=== PATIENT | male | born 1965 | race Caucasian/White ===

== ENCOUNTER → 2019-11-21 10:07 | Outpatient (BNVA) | payer OTHER, SELFPAY | PROVIDERS: Family Provider Nurse Practitioner Family; PCP Nurse Practitioner Family; Visit Provider Anesthesiology | DX: M47.814 Spondylosis without myelopathy or radiculopathy, thoracic region (principal); M51.16 Intervertebral disc disorders with radiculopathy, lumbar region; G57.93 Unspecified mononeuropathy of bilateral lower limbs; Z79.891 Long term (current) use of opiate analgesic | CPT/HCPCS: 99214 ==

== ENCOUNTER → 2020-01-20 11:28 | Outpatient (BNVA) | payer OTHER, SELFPAY | PROVIDERS: Family Provider Nurse Practitioner Family; PCP Nurse Practitioner Family; Visit Provider Nurse Practitioner Family | DX: R35.0 Frequency of micturition (principal); N39.0 Urinary tract infection, site not specified; N30.00 Acute cystitis without hematuria | CPT/HCPCS: 80053; 81000; 87077; 87086; 87186 ==

== ENCOUNTER → 2020-02-16 17:29 | Outpatient (BNVA) | payer OTHER, SELFPAY | PROVIDERS: Family Provider Nurse Practitioner Family; PCP Nurse Practitioner Family; Visit Provider Nurse Practitioner | DX: N39.0 Urinary tract infection, site not specified (principal); R30.0 Dysuria | CPT/HCPCS: 80053; 81000; 87077; 87086; 87186 ==

== ENCOUNTER → 2020-02-27 15:24 | Outpatient (BNVA) | payer OTHER, SELFPAY | PROVIDERS: Family Provider Nurse Practitioner Family; PCP Nurse Practitioner Family; Visit Provider Nurse Practitioner Family | DX: N39.0 Urinary tract infection, site not specified (principal); R31.9 Hematuria, unspecified; E55.9 Vitamin D deficiency, unspecified; I10 Essential (primary) hypertension; I48.91 Unspecified atrial fibrillation; Z79.899 Other long term (current) drug therapy; E78.2 Mixed hyperlipidemia | CPT/HCPCS: 74018 ==

== ENCOUNTER → 2020-02-29 13:57 | Outpatient (BNVA) | payer OTHER, SELFPAY | PROVIDERS: Family Provider Nurse Practitioner Family; PCP Nurse Practitioner Family; Visit Provider Anesthesiology | DX: M51.16 Intervertebral disc disorders with radiculopathy, lumbar region (principal); M47.814 Spondylosis without myelopathy or radiculopathy, thoracic region; M54.9 Dorsalgia, unspecified; M25.562 Pain in left knee; G57.93 Unspecified mononeuropathy of bilateral lower limbs; F17.220 Nicotine dependence, chewing tobacco, uncomplicated; Z79.891 Long term (current) use of opiate analgesic | CPT/HCPCS: 99214 ==

== ENCOUNTER → 2020-03-28 12:53 | Outpatient (BNVA) | payer OTHER, SELFPAY | PROVIDERS: Family Provider Nurse Practitioner Family; PCP Nurse Practitioner Family; Visit Provider Nurse Practitioner Family | DX: N39.0 Urinary tract infection, site not specified (principal) | CPT/HCPCS: 81001 ==

== ENCOUNTER → 2020-04-29 17:19 | Outpatient (BNVA) | payer OTHER, SELFPAY | PROVIDERS: Family Provider Nurse Practitioner Family; PCP Nurse Practitioner Family; Visit Provider Nurse Practitioner Family | DX: N39.0 Urinary tract infection, site not specified (principal) | CPT/HCPCS: 81001 ==

== ENCOUNTER → 2020-04-30 14:08 | Outpatient (BNVA) | payer OTHER, SELFPAY | PROVIDERS: Family Provider Nurse Practitioner Family; PCP Nurse Practitioner Family; Visit Provider Anesthesiology | DX: M51.16 Intervertebral disc disorders with radiculopathy, lumbar region (principal); M47.814 Spondylosis without myelopathy or radiculopathy, thoracic region; M54.9 Dorsalgia, unspecified; M25.562 Pain in left knee; F17.220 Nicotine dependence, chewing tobacco, uncomplicated; Z79.891 Long term (current) use of opiate analgesic; Z71.6 Tobacco abuse counseling | CPT/HCPCS: 99214 ==

== ENCOUNTER → 2020-06-27 12:53 | Outpatient (BNVA) | payer OTHER, SELFPAY | PROVIDERS: Family Provider Nurse Practitioner Family; PCP Nurse Practitioner Family; Visit Provider Nurse Practitioner | DX: M51.16 Intervertebral disc disorders with radiculopathy, lumbar region (principal); M47.814 Spondylosis without myelopathy or radiculopathy, thoracic region; M54.9 Dorsalgia, unspecified; G57.93 Unspecified mononeuropathy of bilateral lower limbs; F17.220 Nicotine dependence, chewing tobacco, uncomplicated; Z79.891 Long term (current) use of opiate analgesic; Z71.6 Tobacco abuse counseling | CPT/HCPCS: 99214 ==

== ENCOUNTER → 2020-07-16 12:15 | Outpatient (BNVA) | payer OTHER, SELFPAY | PROVIDERS: Family Provider Nurse Practitioner Family; PCP Nurse Practitioner Family; Visit Provider Nurse Practitioner Family | DX: Z11.59 Encounter for screening for other viral diseases (principal); J22 Unspecified acute lower respiratory infection; Z20.828 Contact with and (suspected) exposure to other viral communicable diseases | CPT/HCPCS: 87400; 87635 ==

== ENCOUNTER → 2020-07-25 13:37 | Outpatient (BNVA) | payer OTHER, SELFPAY | PROVIDERS: Family Provider Nurse Practitioner Family; PCP Nurse Practitioner Family; Visit Provider Anesthesiology | DX: M51.16 Intervertebral disc disorders with radiculopathy, lumbar region (principal); M47.814 Spondylosis without myelopathy or radiculopathy, thoracic region; G57.93 Unspecified mononeuropathy of bilateral lower limbs; M54.9 Dorsalgia, unspecified; F17.220 Nicotine dependence, chewing tobacco, uncomplicated; Z79.891 Long term (current) use of opiate analgesic; Z71.6 Tobacco abuse counseling | CPT/HCPCS: 99214 ==

== ENCOUNTER → 2020-09-24 14:12 | Outpatient (BNVA) | payer OTHER, SELFPAY | PROVIDERS: Family Provider Nurse Practitioner Family; PCP Nurse Practitioner Family; Visit Provider Anesthesiology | DX: M54.9 Dorsalgia, unspecified (principal); Z79.891 Long term (current) use of opiate analgesic; M47.814 Spondylosis without myelopathy or radiculopathy, thoracic region; M51.16 Intervertebral disc disorders with radiculopathy, lumbar region; G57.93 Unspecified mononeuropathy of bilateral lower limbs; F17.220 Nicotine dependence, chewing tobacco, uncomplicated | CPT/HCPCS: 99214 ==

== ENCOUNTER → 2020-10-24 13:52 | Outpatient (BNVA) | payer OTHER, SELFPAY | PROVIDERS: Family Provider Nurse Practitioner Family; PCP Nurse Practitioner Family; Visit Provider Nurse Practitioner | DX: M51.16 Intervertebral disc disorders with radiculopathy, lumbar region (principal); M47.814 Spondylosis without myelopathy or radiculopathy, thoracic region; M54.9 Dorsalgia, unspecified; G57.93 Unspecified mononeuropathy of bilateral lower limbs; F17.220 Nicotine dependence, chewing tobacco, uncomplicated; Z79.891 Long term (current) use of opiate analgesic; Z71.6 Tobacco abuse counseling | CPT/HCPCS: 99214 ==

== ENCOUNTER → 2020-11-15 13:29 | Outpatient (BNVA) | payer OTHER, SELFPAY | PROVIDERS: Family Provider Nurse Practitioner Family; PCP Nurse Practitioner Family; Visit Provider Anesthesiology Pain Medicine | DX: G89.29 Other chronic pain (principal); M51.16 Intervertebral disc disorders with radiculopathy, lumbar region; M54.9 Dorsalgia, unspecified; F17.220 Nicotine dependence, chewing tobacco, uncomplicated; Z79.891 Long term (current) use of opiate analgesic | CPT/HCPCS: 62323; J1040; J3490 ==

== ENCOUNTER → 2020-12-19 10:39 | Outpatient (BNVA) | payer OTHER, SELFPAY | PROVIDERS: Family Provider Nurse Practitioner Family; PCP Nurse Practitioner Family; Visit Provider Anesthesiology | DX: M51.16 Intervertebral disc disorders with radiculopathy, lumbar region (principal); M47.814 Spondylosis without myelopathy or radiculopathy, thoracic region; M54.9 Dorsalgia, unspecified; G57.93 Unspecified mononeuropathy of bilateral lower limbs; F17.220 Nicotine dependence, chewing tobacco, uncomplicated; Z79.891 Long term (current) use of opiate analgesic; Z71.6 Tobacco abuse counseling | CPT/HCPCS: 99213 ==

== ENCOUNTER → 2021-02-13 13:52 | Outpatient (BNVA) | payer OTHER, SELFPAY | PROVIDERS: Family Provider Nurse Practitioner Family; PCP Nurse Practitioner Family; Visit Provider Nurse Practitioner | DX: M51.16 Intervertebral disc disorders with radiculopathy, lumbar region (principal); M47.814 Spondylosis without myelopathy or radiculopathy, thoracic region; M54.9 Dorsalgia, unspecified; F51.01 Primary insomnia; G62.9 Polyneuropathy, unspecified; G57.93 Unspecified mononeuropathy of bilateral lower limbs; F17.220 Nicotine dependence, chewing tobacco, uncomplicated; Z79.891 Long term (current) use of opiate analgesic | CPT/HCPCS: 99215 ==

== ENCOUNTER → 2021-03-13 14:07 | Outpatient (BNVA) | payer OTHER, SELFPAY | PROVIDERS: Family Provider Nurse Practitioner Family; PCP Nurse Practitioner Family; Visit Provider Anesthesiology | DX: M51.16 Intervertebral disc disorders with radiculopathy, lumbar region (principal); M47.814 Spondylosis without myelopathy or radiculopathy, thoracic region; M54.9 Dorsalgia, unspecified; F51.01 Primary insomnia; G62.9 Polyneuropathy, unspecified; G57.93 Unspecified mononeuropathy of bilateral lower limbs; F17.220 Nicotine dependence, chewing tobacco, uncomplicated; Z79.891 Long term (current) use of opiate analgesic; Z71.6 Tobacco abuse counseling | CPT/HCPCS: 99213; 99214 ==

== ENCOUNTER → 2021-05-07 13:58 | Outpatient (BNVA) | payer OTHER, SELFPAY | PROVIDERS: Family Provider Nurse Practitioner Family; PCP Nurse Practitioner Family; Visit Provider Anesthesiology | DX: M51.16 Intervertebral disc disorders with radiculopathy, lumbar region (principal); M47.814 Spondylosis without myelopathy or radiculopathy, thoracic region; F17.220 Nicotine dependence, chewing tobacco, uncomplicated; Z79.891 Long term (current) use of opiate analgesic | CPT/HCPCS: 99213 ==

== ENCOUNTER → 2021-07-03 13:53 | Outpatient (BNVA) | payer OTHER, SELFPAY | PROVIDERS: Family Provider Nurse Practitioner Family; PCP Nurse Practitioner Family; Visit Provider Anesthesiology | DX: G89.29 Other chronic pain (principal); M47.814 Spondylosis without myelopathy or radiculopathy, thoracic region; M51.16 Intervertebral disc disorders with radiculopathy, lumbar region; G57.93 Unspecified mononeuropathy of bilateral lower limbs; F51.01 Primary insomnia; Z79.891 Long term (current) use of opiate analgesic; Z87.891 Personal history of nicotine dependence | CPT/HCPCS: 99214 ==

== ENCOUNTER → 2021-08-28 13:28 | Outpatient (BNVA) | payer OTHER, SELFPAY | PROVIDERS: Family Provider Nurse Practitioner Family; PCP Nurse Practitioner Family; Visit Provider Anesthesiology | DX: M51.16 Intervertebral disc disorders with radiculopathy, lumbar region (principal); M47.814 Spondylosis without myelopathy or radiculopathy, thoracic region; G57.93 Unspecified mononeuropathy of bilateral lower limbs; F51.01 Primary insomnia; Z79.891 Long term (current) use of opiate analgesic; Z79.899 Other long term (current) drug therapy; Z87.891 Personal history of nicotine dependence | CPT/HCPCS: 99214 ==

== ENCOUNTER → 2021-09-11 14:39 | Outpatient (BNVA) | payer OTHER, SELFPAY | PROVIDERS: Family Provider Nurse Practitioner Family; PCP Nurse Practitioner Family; Referring Provider Family Medicine; Visit Provider Orthopaedic Surgery | DX: M54.9 Dorsalgia, unspecified (principal) | CPT/HCPCS: 72110 ==

== ENCOUNTER → 2023-11-03 15:40 | Outpatient (BNVA) | payer OTHER, SELFPAY | PROVIDERS: Family Provider Nurse Practitioner Family; PCP Family Medicine; Visit Provider Nurse Practitioner Family | DX: I10 Essential (primary) hypertension (principal); E78.2 Mixed hyperlipidemia; Z79.899 Other long term (current) drug therapy; Z12.5 Encounter for screening for malignant neoplasm of prostate | CPT/HCPCS: 80053; 80061; 83036; 84443; 85025; G0103 ==

== ENCOUNTER 2025-08-02 14:44 | Emergency (ER) | payer OTHER, SELFPAY ==
--- OUTSIDE RECORDS SUMMARY | 2024-07-23 03:00 | XMS_ITS ---
Author Organization [facility] Address [address] [place] [address] Support Name Relationship Address , [place] Emergency Contact Unknown Un available Moises Marte Guarantor Unknown [phone] Care Team Providers Care Director Supply Chain Name Role Phone Aydin Carreno Primary Care Provider Annie Nicholas Unavailable [phone] Migration, Provider Unavailable Unavailable Allergies Allergen (clinical drug ingredient) Drug/Non Drug Allergy documented on EMR Reaction Allergy Type Onset Date Status gabapentin Gabapentin hot flashes, anxiety & anger, N&V Drug Allergy Active zonisamide Zonisamide paranoia, insomnia, hot flashes, anxiety & anger Drug Allergy Active Gluten Gluten rash Allergy Active REASON FOR VISIT EMR-Anthony Medications Medication SIG (Take, Route, Frequency, Duration) Notes Start Date End Date Status zolpidem *Reorder from In dispan for eRx and Interaction Alerts* Active Melatonin *[facility] for [facility]* Active Propafenone *Reorder from In dispan for eRx and Interaction Alerts* Active Iron *Pick strength-f orm from [facility] for eRX* Active Aspirin *[facility]* Active dilTIAZem HCl *Pick strength-f orm from [facility] for eRX* Active duloxetine *Reorder from In dispan for eRx and Interaction Alerts* Active Social History Social History Additional Details Category Social Info Options Details Migrated Social History Migrated Social History Alcoholic beverages? - No, Applying for disability? - No, Current Occupation - 8hr/day, Currently on disability? - No, Drug or substance abuse? - No, exposure to toxins/poisonous substances at work - No, I am interested in quitting. - No, If yes, frequency of alcoholic beverages - 1 drink per day, Marital Status - , Nonprescription drug use? - No, Participation in detoxification or rehabilitation - No, Smoked in the past? - No, Smoking - No, Smoking status (MU) - <BLANK>, Working currently? - Yes Encounters Encounter Location Date Provider Diagnosis Migrated_Facility 0 0 07/23/2024 Provider Migration Plan Of Treatment Next Appt Details Provider Name:Jonatan Guerra, 09/26/2025 09:40:00 AM, [address] [place], [address], Progress Notes * Moises MARTEDOB:1965 (59 yo M)Acc No.[id number]:07/23/2024 Patient: Moises KENNEDY :1965 A ge:58 Y S ex:Male Address:[address] [place] [address] Subjective: * Chief Complaints: * E MR-Anthony * Surgical History: Cholecystectomy Knee replacement surgery rightwrist * Family History: M igrated Family History: : chronic pain, L [place] cancer. * Social History: M igrated Social History: M igrated Social History: Alcoholic beverages? - No, A pplying for disability? - No, C urrent Occupation - 8hr/day, C urrently on disability? - No, D rug or substance abuse? - No, exposure to toxins/poisonous substances at work - No, I am interested in quitting. - No, I f yes, frequency of alcoholic beverages - 1 drink per day, M arital Status - , N onprescription drug use? - No, P articipation in detoxification or rehabilitation - No, S moked in the past? - No, S moking - No, S moking status (MU) - <BLANK>, W orking currently? - Yes. * Medications: T akingPropafenone , Notes to Pharmacist: *Reorder from Medispan for eRx and Interaction Alerts*Melatonin , Notes to Pharmacist: *Pick strength-form from Medispan for eRX*Iron , Notes to Pharmacist: *Pick strength-form from Medispan for eRX*duloxetine , Notes to Pharmacist: *Reorder from Medispan for eRx and Interaction Alerts*dilTIAZem HCl , Notes to Pharmacist: *Pick strength-form from Medispan for eRX*Aspirin , Notes to Pharmacist: *Pick strength-form from Medispan for eRX*zolpidem , Notes to Pharmacist: *Reorder from Medispan for eRx and Interaction Alerts*Taking Propafenone , Notes to Pharmacist: *Reorder from Medispan for eRx and Interaction Alerts*Taking Melatonin , Notes to Pharmacist: *Pick strength-form from Medispan for eRX*Taking Iron , Notes to Pharmacist: *Pick strength-form from Medispan for eRX*Taking duloxetine , Notes to Pharmacist: *Reorder from Medispan for eRx and Interaction Alerts*Taking dilTIAZem HCl , Notes to Pharmacist: *Pick strength- form from Medispan for eRX*Taking Aspirin , Notes to Pharmacist: *Pick strength-form from Medispan for eRX*Taking zolpidem , Notes to Pharmacist: *Reorder from Medispan for eRx and Interaction Alerts* * Allergies: Z onisamide: paranoia, insomnia, hot flashes, anxiety & anger - AllergyGluten: rash - AllergyGabapentin: hot flashes, anxiety & anger, N&V - Allergy * * Date:
--- OUTSIDE RECORDS SUMMARY | 2024-08-02 02:00 | XMS_ITS ---
Author Organization [facility] Address [address] [place] [address] Support Name Relationship Address , [place] Emergency Contact Unknown Un available Moises Marte Guarantor Unknown [phone] Care Team Providers Care Director Prospect Name Role Phone Aydin Carreno Primary Care Provider Annie Nicholas Unavailable [phone] Jonatan Guerra Unavailable [phone] REASON FOR VISIT 2 mo RK Encounters Encounter Location Date Provider Diagnosis [facility] [place] [address] [place] [address] 08/02/2024 Jonatan Guerra Plan Of Treatment Next Appt Details Provider Name:Jonatan Guerra, 09/26/2025 09:40:00 AM, [address] [place], [address], Progress Notes * Moises MARTEDOB:1965 (59 yo M)Acc No.[id number]:08/02/2024 Progress Notes Patient: Moises Ruiz Provider: Jonathan Guerra D.O. :1965 A ge:58 Y S ex:Male Date:08/02/2024 Address:[address] [address], [address] [facility] [id number] Pcp:Aydin Carreno Subjective: * Chief Complaints: * 2 mo RK Care Plan Details* * Electronic signature of Jonatan Guerra DO on 08/02/2025 at 02:48 PM CARD CLOTHIER Sign off status: Pending * Provider: Jonathan Guerra D.O. Date: 10/02/2023 Generated for Nicki paul/Dayana/eTransmitting on: 1 10/02/2024 02:48 PM CARD CLOTHIER
--- NOTE | 2025-08-02 14:46 | ECG_ITS ---
[facility] 2025[facility] Pat Name: Moises Marte Department: Room: Gender: Male Channel Marketing Coordinator: : 1965 Requested By: Sheri Kraus Order Number: [id number] MD: Anastasiya Garibay M.D. Measurements Intervals Model Rate: 83 P: 0 NH: 0 QRS: 50 QRSD: 91 T: 69 QT: 354 QTc: 418 Interpretive Statements ATRIAL FIBRILLATION NONSPECIFIC T-WAVE ABNORMALITY ABNORMAL RHYTHM ECG No previous ECG available for comparison Electronically Signed On 08-04-2025 13:01:21 REGIONAL VICE PRESIDENT LIFE SALES by Anastasiya Garibay M.D. [email or web address]
--- OUTSIDE RECORDS SUMMARY | 2025-08-02 14:48 | XMS_ITS | Encounter Summary ---
Author Organization [facility] Address [address] [place] [address] Care Team Providers Care Pigskin Trimmer Name Role Phone Non-Staff, Physician Primary Care Provider Unava ilable Encounter Details Date Type Department Care Team (Latest Contact Info) Description 06/04/2006 Outpatient Historical [facility] [address] 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
--- OUTSIDE RECORDS SUMMARY | 2025-08-02 14:48 | XMS_ITS | Encounter Summary ---
Author Organization [facility] Address [address] [place] [facility] [place] [address] Care Team Providers Care Insulator Technician Name Role Phone Non-Staff, Physician Primary Care Provider Unava ilable Encounter Details Date Type Department Care Team (Latest Contact Info) Description 09/02/1998 Outpatient Historical [facility] Francisco Javier Mejía MD [address] [place] [phone] Plantar nerve lesion (Primary Dx); Corns and callosities; Enthesopathy of ankle and tarsus, unspecified Social History Tobacco Use Types Packs/Day Years Used Date Smoking Tobacco: Never Assessed Sex and Gender Information Value Date Recorded Sex Assigned at Not on file 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
--- OUTSIDE RECORDS SUMMARY | 2025-08-02 14:48 | XMS_ITS | Encounter Summary ---
Author Organization [facility] Address [address] [place] [address] Care Team Providers Care Crop Specialist Name Role Phone Non-Staff, Physician Primary Care Provider Unava ilable Encounter Details Date Type Department Care Team (Late st Contact Info) Description 02/16/2006 Outpatient Historical [facility] Orthoped[facility]- 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
--- OUTSIDE RECORDS SUMMARY | 2025-08-02 14:48 | XMS_ITS | Encounter Summary ---
Author Organization [facility] Address [address] [place] [address] Care Team Providers Care Organic Section Technical Lead Name Role Phone Non-Staff, Physician Primary Care Provider Unava ilable Encounter Details Date Type Department Care Team (Latest Contact Info) Description 04/16/2006 Outpatient Historical [facility] Operating Room [address] [place] [phone] Je Loco MD [address] [place] [address] Chondromalacia of Patella (Primary Dx) Social History Tobacco Use Types Packs/Day Years Used Date Smoking Tobacco: Never Assessed Sex and Gender Information Value Date Recorded Sex Assigned at Not on file Legal 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
--- OUTSIDE RECORDS SUMMARY | 2025-08-02 14:48 | XMS_ITS | Encounter Summary ---
Author Organization [facility] Address [address] [place] [address] Care Team Providers Care Ball Ender Name Role Phone Non-Staff, Physician Primary Care Provider Unava ilable Encounter Details Date Type Department Care Team (Latest Contact Info) Description 05/18/2006 Outpatient Historical [facility] Orthopedics- 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
--- OUTSIDE RECORDS SUMMARY | 2025-08-02 14:48 | XMS_ITS | Encounter Summary ---
Author Organization [facility] Address [address] [facility] [address] Care Team Providers Care Manager Subway Name Role Phone Non-Staff, Physician Primary Care Provider Unava ilable Encounter Details Date Type Department Care Team (Latest Contact Info) Description 07/21/[address] 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
--- OUTSIDE RECORDS SUMMARY | 2025-08-02 14:48 | XMS_ITS | Encounter Summary ---
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
--- OUTSIDE RECORDS SUMMARY | 2025-08-02 14:48 | XMS_ITS | Encounter Summary ---
Author Organization [facility] Address [address] [place] [address] Care Team Providers Care Hot Dip Tinning Supervisor Name Role Phone Non-Staff, Physician Primary Care Provider Unava ilable Encounter Details Date Type Department Care Team (Latest Contact Info) Description 04/20/2006 Outpatient Historical [facility] Orthopedics- 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
--- OUTSIDE RECORDS SUMMARY | 2025-08-02 14:48 | XMS_ITS | Encounter Summary ---
Author Organization [facility] Address [address] [place] [address] Care Team Providers Care Concrete Mixing Plant Superintendent Name Role Phone Non-Staff, Physician Primary Care Provider Unava ilable Encounter Details Date Type Department Care Team (Latest Contact Info) Description 06/10/2006 Outpatient Historical [facility] Medicine [address] [phone] Jennifer Mckeon MD NO ADDRESS ON FILE Atrial Fibrillation (CMS/HCC) (Primary Dx); Encounter for Long-Term (Current) Use of Anticoagulants Social History Tobacco Use Types Packs/Day Years Used Date Smoking Tobacco: Never Assessed Sex and Gender Information Value Date Recorded Sex Assigned at Not on file Legal Sex Male 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
--- OUTSIDE RECORDS SUMMARY | 2025-08-02 14:48 | XMS_ITS | Encounter Summary ---
Author Organization [facility] Address [address] [facility] [place] [address] Care Team Providers Care Hand Marker Name Role Phone Non-Staff, Physician Primary Care Provider Unava ilable Encounter Details Date Type Department Care Team (Latest Contact Info) Description 01/30/2003 Outpatient Historical [facility] Family Medicine- [address] [place] [phone] Solomon Schwarz, NO ADDRESS ON FILE SLEEP DISTURBANCE NOS (Primary Dx); JOINT PAIN-L/LEG; INJURY OF FACE AND NECK; CHRONIC SINUSITIS NOS Social History Tobacco Use Types Packs/Day Years Used Date Smoking Tobacco: Never Assessed Sex and Gender Information Value Date Recorded Sex Assigned at Not on file Legal Sex Male 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
--- OUTSIDE RECORDS SUMMARY | 2025-08-02 14:48 | XMS_ITS | Encounter Summary ---
Author Organization [facility] Address [address] [place] [facility] [place] [address] Care Team Providers Care Hr Business Partner Name Role Phone Non-Staff, Physician Primary Care Provider Unava ilable Encounter Details Date Type Department Care Team (Latest Contact Info) Description 02/01/2004 Outpatient Historical [facility] Family Medicine- [address] [place] [phone] Jennifer Mckeon MD NO ADDRESS ON FILE FEVER (Primary Dx) Social History Tobacco Use Types Packs/Day Years Used Date Smoking Tobacco: Never Assessed Sex and Gender Information Value Date Recorded Sex Assigned at Not on file Legal Sex 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
--- OUTSIDE RECORDS SUMMARY | 2025-08-02 14:48 | XMS_ITS | Encounter Summary ---
Author Organization [facility] Address [address] [place] [address] Care Team Providers Care Surgical Services Coordinator Name Role Phone Non-Staff, Physician Primary Care Provider Unava ilable Encounter Details Date Type Department Care Team (Latest Contact Info) Description 04/28/2006 Outpatient Historical [facility] Orthopedics- 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
--- OUTSIDE RECORDS SUMMARY | 2025-08-02 14:48 | XMS_ITS | Encounter Summary ---
Author Organization [facility] Address [address] [facility] [place] [address] Care Team Providers Care Pharmacognosy Teacher Name Role Phone Non-Staff, Physician Primary Care Provider Unava ilable Encounter Details Date Type Department Care Team (Latest Contact Info) Description 10/17/2003 Outpatient Historical [facility] Family Medicine- [address] [place] [phone] Solomon Schwarz, NO ADDRESS ON FILE DYSPHAGIA (Primary Dx); CHR MAXILLARY SINUSITIS; Abrasion trunk; CARDIAC DYSRHYTHMIA NOS Social History Tobacco Use Types Packs/Day Years Used Date Smoking Tobacco: Never Assessed Sex and Gender Information Value Date Recorded Sex Assigned at Not on file Legal Sex Male 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
--- OUTSIDE RECORDS SUMMARY | 2025-08-02 14:48 | XMS_ITS | Encounter Summary ---
Author Organization [facility] [place] Address [address] [facility] [place] [address] Care Team Providers Care Clinical Analyst Name Role Phone Non-Staff, Physician Primary Care Provider Unava ilable Encounter Details Date Type Department Care Team (Latest Contact Info) Description 01/22/2004 Outpatient Historical [facility] Family Medicine- Kalyani Roth[address] [place] [phone] Inna Degroot, ANTOINETTE NO ADDRESS ON FILE CUTANEOUS CANDIDIASIS (Primary Dx) Social History Tobacco Use Types Packs/Day Years Used Date Smoking Tobacco: Never Assessed Sex and Gender Information Value Date Recorded Sex Assigned at Not on file Legal 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
--- OUTSIDE RECORDS SUMMARY | 2025-08-02 14:48 | XMS_ITS | Clinical Summary ---
Author Organization [facility] Address [address] [address] Care Team Providers Care Arboreal Scientist Name Role Phone Non-Staff, Physician Primary Care Provider Unava ilable Allergies No known active allergies Medications aspirin (MELANIE) 325 mg Oral Tab Take 325 mg by mouth daily. Active ketoconazole (NIZORAL) 2 % Topical Crea Apply to affected area daily. 30 Gram 0 02/27/2011 Active propafenone (RYTHMOL) 300 mg Oral Tab Take 300 mg by mouth 2 times daily. In morning and at night Active propafenone (RYTHMOL) 150 mg Oral Tab Take 150 mg by mouth daily after lunch. At noon Active triamcinolone acetonide (KENALOG) 0.5 % Topical Crea Apply to affected area daily. Use for eczema, dry/itchy skin 60 Gram 1 10/16/2011 Active zolpidem (AMBIEN) 10 mg Oral tablet Take 1 Tab by mouth nightly as needed for Insomnia. 30 Tab 5 12/12/2012 Active HYDROcodone-jessi taminophen (NORCO) 10-325 mg Oral Tab Take 1 Tab by mouth every 4 hours as needed for Pain, Moderate. 150 Tab 4 03/29/2013 Active diclofenac sodium (VOLTAREN) 75 mg Oral TbEC TAKE ONE TABLET BY MOUTH TWICE DAILY 60 Tab 5 03/22/2013 Active diltiazem CD 24 hour (CARDIZEM CD) 180 mg Oral capsule Take 1 Cap by mouth daily. appt needed for further refills. 30 Cap 0 06/14/2013 Active Active Problems Problem Noted Date Diagnosed Date Atrial fibrillation 02/14/2013 Overview (02/14/2013): Followed locally by Dr. Sanchez ([place]) Degeneration of lumbar or lumbosacral interverte bral disc 07/28/2010 Overview (07/28/2010): S/P Epidural injections x 2 sets Narcotic dependence 11/08/2009 Osteoarthritis of Knee, S/P R Knee Replacement ( 10/07) 09/18/2008 Overview (02/27/2011): MRI (09/05): Severe tricompartmental osteoarthritis of R knee, medial meniscal maceration. S/P Arthroscopy R Knee x 3 S/P Synvisc, Bilaterally x 2 (minimal benefit) Immunizations Immunization Administration Dates Next Due (TDVAX)(7 YRS UP) TETANUS AN D DIPHTHERIA TOXOIDS, ADSORBED (2 LF OF TETANUS TOXOID AND 2 LF OF DIPHTHERIA TOXOID), 0.5ML (PF), IM 11/25/2008 Influenza Vaccine Split 3+ Yrs PF IM 07/24/2011, 07/28/2010 Family History Medical History Relation Name Comments Healthy Mother Cancer Sister Relation Name Status Comments Father Mother Alive Sister Social History Tobacco Use Types Packs/Day Years Used Date Smoking Tobacco: Former Alcohol Use Standard Drinks/Week Comments No 0 (1 standard drink = 0.6 oz pur e alcohol) Sex and Gender Information Value Date Recorded Sex Assigned at Not on file Legal Sex Male 2:36 AM FULL TIME Gender Identity Not on file Sexual Orientation Not on file Last Filed Vital Signs Vital Sign Reading Time Taken Comments Blood Pressure 102/76 02/14/2013 3:38 PM CDT Pulse 69 02/14/2013 3:38 PM CDT Temperature 37 C (98.6 F) 02/14/2013 3:38 PM CDT Respiratory Rate 20 02/14/2013 3:38 PM CDT Oxygen Saturation 97% 02/14/2013 3:38 PM CDT Inhaled Oxygen Concentration - - Weight 126.6 kg (279 lb) 02/14/2013 3:38 PM CDT Height 190.5 cm (6' 3 ) 02/14/2013 3:38 PM CDT Body Mass Index 34.87 02/14/2013 3:38 PM CDT Plan of Treatment Health Maintenance Due Date Last Done Comments HEPATITIS B VACCINES (1 of 3 - 19+ 3-dose series) 12/04/1986 DTAP/TDAP/TD VACCINES (1 - Tdap) 11/26/2008 11/26/19 09 COLORECTAL SCREENING 12/04/2012 Colorectal Cancer Screening 12/04/2012 FIT-DNA Q 3 years 12/04/2012 FIT/FOBT Q 1 year 12/04/2012 Flex Sig/CT Colonography Q 5 years 12/04/2012 ZOSTER VACCINE (1 of 2) 12/04/2017 INFLUENZA VACCINE (#1) 2025 07/24/2011, 2009 Insurance RUST OA Care Teams Arboreal Scientist Relationship Specialty Start Date End Date Non-Staff, Physician NO ADDRESS ON FILE PCP - General 01/22/14
--- OUTSIDE RECORDS SUMMARY | 2025-08-02 14:48 | XMS_ITS | Encounter Summary ---
Author Organization [facility] Address [address] [place] [address] Care Team Providers Care Restorer Paper And Prints Name Role Phone Non-Staff, Physician Primary Care Provider Unava ilable Encounter Details Date Type Department Care Team (Late st Contact Info) Description 07/29/2005 Outpatient Historical [facility] Orthopedics- 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
--- OUTSIDE RECORDS SUMMARY | 2025-08-02 14:48 | XMS_ITS | Encounter Summary ---
Author Organization [facility] Address [address] [place] [address] Care Team Providers Care Virtual Customer Assistant Name Role Phone Non-Staff, Physician Primary Care Provider Unava ilable Encounter Details Date Type Department Care Team (Latest Contact Info) Description 06/29/2006 Outpatient Historical [facility] Orthopedics- 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
--- OUTSIDE RECORDS SUMMARY | 2025-08-02 14:48 | XMS_ITS | Encounter Summary ---
Author Organization [facility] Address [address] [place] [address] Care Team Providers Care Section Cutter Name Role Phone Non-Staff, Physician Primary Care Provider Unava ilable Encounter Details Date Type Department Care Team (Latest Contact Info) Description 06/21/2006 Outpatient Historical [facility] Cardiology- Laura [address] [place] [address] Blessing Chávez MD [address] [facility] [address] [place] [address] Atrial Fibrillation (CMS/HCC) (Primary Dx); Overweight Social History Tobacco Use Types Packs/Day Years Used Date Smoking Tobacco: Never Assessed Sex and Gender Information Value Date Recorded Sex Assigned at Not on file Legal Sex Male 2:36 AM DECKHAND Gender Identity Not on file Sexual Orientation Not on file documented as of this encounter Plan of Treatment Not on file documented as of this encounter Visit Diagnoses Diagnosis Atrial fibrillation (CMS/HCC)- Primary Atrial fibrillation Overweight(278.02) Overweight documented in this encounter Care Teams Section Cutter Relationship Specialty Start Date End Date Non-Staff, Physician NO ADDRESS ON FILE PCP - General 01/22/14 documented as of this encounter
--- OUTSIDE RECORDS SUMMARY | 2025-08-02 14:48 | XMS_ITS | Encounter Summary ---
Author Organization [facility] Address [address] [facility] [place] [address] Care Team Providers Care Urban Forester Name Role Phone Non-Staff, Physician Primary Care Provider Unava ilable Encounter Details Date Type Department Care Team (Late st Contact Info) Description 06/04/2006 Inpatient Historical [facility] Brandon Bhardwaj MD [address] [place] [phone] Brandy Wilson MD NO ADDRESS ON FILE Atrial Fibrillation (CMS/HCC) (Primary Dx) Social History Tobacco Use Types Packs/Day Years Used Date Smoking Tobacco: Never Assessed Sex and Gender Information Value Date Recorded Sex Assigned at Not on file 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 Gender Identity Not on file Sexual Orientation Not on file documented as of this encounter Plan of Treatment Not on file documented as of this encounter Procedures Procedure Name Priority Date/Time Associated Diagnosis Comments PROTIME-INR Routine 06/07/2006 5:16 AM CDT PROTIME-INR Routine 06/06/2006 6:47 AM CDT TSH Routine 06/05/2006 1:29 PM CDT T4 FREE Routine 06/05/2006 1:29 PM CDT MAGNESIUM LEVEL Routine 06/05/2006 1:29 PM CDT BASIC METABOLIC PANEL Routine 06/05/2006 1:29 PM CDT CARDIAC ENZYMES Routine 06/05/2006 5:25 AM CDT LIPID PANEL Routine 06/05/2006 5:25 AM CDT XR CHEST PA OR AP 1 VW Routine 06/04/2006 11:19 PM CDT documented in this encounter Results * (ABNORMAL) PROTIME-INR (06/07/2006 5:16 AM CDT) PROTIME 15.3(H) 12.6 - 14.9 Secs INTERFACE SYSTEM Comment: As of 05 note change in normal range. INR 1.2 INTERFACE SYSTEM Comment: Expected Values for INR: DVT/PE Goal INR 2.5; range 2.0 - 3.0 Valve Replacement Tissue Goal INR 2.5; range 2.0 - 3.0 Mechanical Goal INR 3.0; range 2.5 - 3.5 POST-MN Goal INR 2.5; range 2.0 - 3.0 or Goal 3.0; range 2.5 - 3.5 Atrial Fibrillation Goal INR 2.5; range 2.0 - 3.0 Ischemic Stroke Goal INR 2.5; range 2.0 - 3.0 For additional information see Guidelines for Anticoagulation available from the pharmacy Xavier Zambrano D. 06/07/2006 5:16 AM CDT us Brandy Wilson MD HEMATOLOGY ORDERABLES Final Re sult INTERFACE SYSTEM Refer to clinic/hospital department * PROTIME-INR (06/06/2006 6:47 AM CDT) PROTIME 14.5 12.6 - 14.9 Secs INTERFACE SYSTEM Comment: As of 05 note change in normal range. INR 1.1 INTERFACE SYSTEM Comment: Expected Values for INR: DVT/PE Goal INR 2.5; range 2.0 - 3.0 Valve Replacement Tissue Goal INR 2.5; range 2.0 - 3.0 Mechanical Goal INR 3.0; range 2.5 - 3.5 POST-MN Goal INR 2.5; range 2.0 - 3.0 or Goal 3.0; range 2.5 - 3.5 Atrial Fibrillation Goal INR 2.5; range 2.0 - 3.0 Ischemic Stroke Goal INR 2.5; range 2.0 - 3.0 For additional information see Guidelines for Anticoagulation available from the pharmacy Xavier Zambrano. 06/06/2006 6:47 AM CDT Brandy Wilson MD HEMATOLOGY ORDERABLES Final Re sult Performing Organization Address [facility] de Phone Number INTERFACE SYSTEM Refer to clinic/hospital department * BASIC METABOLIC PANEL (06/05/2006 1:29 PM CDT) GLUCOSE 74 70 - 110 mg/dL INTERFACE SYSTEM BUN 13 9 - 20 mg/dL INTERFACE SYSTEM CREATININE 1.0 0.7 - 1.5 mg/dL INTERFACE SYSTEM SODIUM 145 136 - 145 mEq/L INTERFACE SYSTEM POTASSIUM 3.6 3.5 - 5.0 mEq/L INTERFACE SYSTEM CHLORIDE 108 95 - 110 mEq/L INTERFACE SYSTEM CO2 25 22 - 32 mmol/l INTERFACE SYSTEM ANION GAP 16 9 - 20 mEq/L INTERFACE SYSTEM OSMOLALITY, CALCULATED 295 275 - 295 mOsm/Kg INTERFACE SYSTEM CALCIUM 9.4 8.4 - 10.5 mg/dL INTERFACE SYSTEM 06/05/2006 1:29 PM CDT Vitaliy Sullivan MD CHEMISTRY ORDERABLES Final R esult Performing Organization Address [facility] de Phone Number INTERFACE SYSTEM Refer to clinic/hospital department * (ABNORMAL) MAGNESIUM LEVEL (06/05/2006 1:29 PM CDT) MAGNESIUM 2.5(H) 1.7 - 2.4 mg/dL INTERFACE SYSTEM Comment: As of 05 the [facility] has changed testing methods. The new reference range is 1.7-2.4 The old referance range was 1.6-2.3 06/05/2006 1:29 PM CDT Vitaliy Sullivan MD CHEMISTRY ORDERABLES Final R esult Performing Organization Address City/[facility] Phone Number INTERFACE SYSTEM Refer to clinic/hospital department * T4 FREE (06/05/2006 1:29 PM CDT) Pathologist [facility] T4 FREE 1.01 0.89 - 1.76 ng/dL INTERFACE SYSTEM 06/05/2006 1:29 PM CDT us Vitaliy Sullivan MD CHEMISTRY ORDERABLES Final R esult Performing Organization Address [facility] Phone Number INTERFACE SYSTEM Refer to clinic/hospital department * TSH (06/05/2006 1:29 PM CDT) [facility] TSH 1.346 0.350 - 5.500 uIU/ml INTERFACE SYSTEM Comment: As of 05 at 3:00 p.m. [facility] has changed the methodology for TSH, and with this change the reference range has changed from 0.49-4.67 to 0.35-5.5 uIU/ml. 06/05/2006 1:29 PM CDT Vitaliy Sullivan MD CHEMISTRY ORDERABLES Final R esult Performing Organization Address [facility] Phone Number INTERFACE SYSTEM Refer to clinic/hospital department * CARDIAC ENZYMES (06/05/2006 5:25 AM CDT) [facility] CKMB 2.1 0.0 - 5.0 ng/mL INTERFACE SYSTEM TROPONIN I <0.1 0.0 - 1.5 ng/mL INTERFACE SYSTEM 06/05/2006 5:25 AM CDT us Brandy Wilson MD CHEMISTRY ORDERABLES Final Res ult Performing Organization Address [facility] Phone Number INTERFACE SYSTEM Refer to clinic/hospital department * (ABNORMAL) LIPID PANEL (06/05/2006 5:25 AM CDT) CALCULATED TOTAL CHOLESTEROL TO HDL RATIO 3.18(L) 3.43 - 4.97 INTERFACE SYSTEM CHOLESTEROL 124 75 - 200 mg/dL INTERFACE SYSTEM HDL 39(L) 40 - 60 mg/dL INTERFACE SYSTEM LDL CALCULATED 65 0 - 130 mg/dL INTERFACE SYSTEM TRIGLYCERIDE 101 0 - 168 mg/dL INTERFACE SYSTEM 06/05/2006 5:25 AM CDT Brandy Wilson MD CHEMISTRY ORDERABLES Final Res ult INTERFACE SYSTEM Refer to clinic/hospital department * XR CHEST PA OR AP (06/04/2006 11:19 PM CDT) Anatomical Region Laterality Modality Chest Other 06/04/2006 11:1 9 PM CDT Narrative 06/04/2006 11:19 PM CDT Chest portable. Date: 06/05/2006, 1423 hours. Indication: Atrial fibrillation. No prior study is available for comparison. Midline structures are within normal limits. Bronchovascular and interstitial crowding present in association with poor inspiratory effort. Noactive airspace or pleural process suspected. Impression: No acute findings. Poor inspiratory effort. - Dictated By: Ankur Norris D.O. Electronically Signed By: Ankur Norris D.O. Date Signed: 06/05/06 Procedure Note 08/16/2009 Chest portable. Date: 06/05/2006, 1423 hours. Indication: Atrial fibrillation. No prior study is available for comparison. Midline structures are withinnormal limits. Bronchovascular and interstitial crowding present in association with poorinspiratory effort. Noactive airspace or pleural process suspected. Impression: No acute findings. Poor inspiratory effort. - Dictated By: Ankur Norris D.O. Electronically Signed By: Ankur Norris D.O. Date Signed: 06/05/06 Vinod Reeves MD DIAGNOSTIC IMAGING ORDER REMY Final Result documented in this encounter Visit Diagnoses Diagnosis Atrial fibrillation (CMS/HCC)- Primary Atrial fibrillation documented in this encounter Care Teams Urban Forester Relationship Specialty Start Date End Date Non-Staff, Physician NO ADDRESS ON FILE PCP - General 01/22/14 documented as of this encounter
--- OUTSIDE RECORDS SUMMARY | 2025-08-02 14:48 | XMS_ITS | Clinical Summary ---
Author Organization [facility] Address [address] [place]: Epic Prelude ADT [place] [address] Care Team Providers Care Rooming House Operator Name Role Phone Non-Staff, Physician Primary Care Provider Unava ilable Allergies No known active allergies Active Problems Problem Noted Date Diagnosed Date Atrial fibrillation 02/14/2013 Overview (01/23/2021): Followed locally by Dr. 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
--- OUTSIDE RECORDS SUMMARY | 2025-08-02 14:48 | XMS_ITS | Encounter Summary ---
Author Organization [facility] Address [address] [place] [address] Care Team Providers Care Plaster Caster Name Role Phone Non-Staff, Physician Primary Care Provider Unava ilable Encounter Details Date Type Department Care Team (Latest Contact Info) Description 06/28/2007 Outpatient Historical [facility] Cardiology- Laura [address] [place] [phone] Abimbola Guy, PA [address] [place] [phone] Atrial Fibrillation (CMS/HCC) (Primary Dx) Social History Tobacco Use Types Packs/Day Years Used Date Smoking Tobacco: Never Assessed Sex and Gender Information Value Date Recorded Sex Assigned at Not on file 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
--- OUTSIDE RECORDS SUMMARY | 2025-08-02 14:48 | XMS_ITS | Encounter Summary ---
Author Organization [facility] Address [address] [place] [address] Care Team Providers Care Base Ply Hand Name Role Phone Non-Staff, Physician Primary Care Provider Unava ilable Encounter Details Date Type Department Care Team (Late st Contact Info) Description 02/03/2003 Emergency [facility] Emergency Department [address] 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
--- OUTSIDE RECORDS SUMMARY | 2025-08-02 14:48 | XMS_ITS | Encounter Summary ---
Author Organization [facility] Address [address] [address] Care Team Providers Care Conference Manager Name Role Phone Non-Staff, Physician Primary Care Provider Unava ilable Encounter Details Date Type Department Care Team (Latest Contact Info) Description 01/25/2002 Outpatient Historical [facility] Family Medicine- Kalyani [address] [place] [phone] Jennifer Mckeon MD NO ADDRESS ON FILE INSECT BITE NEC (Primary Dx); TOXIC ERYTHEMA Social History Tobacco Use Types Packs/Day Years Used Date Smoking Tobacco: Never Assessed Sex and Gender Information Value Date Recorded Sex Assigned at Not on file 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
--- OUTSIDE RECORDS SUMMARY | 2025-08-02 14:49 | XMS_ITS | Encounter Summary ---
Author Organization [facility] Address [address] [place] [address] Care Team Providers Care Vice President Of Procurement Name Role Phone Non-Staff, Physician Primary Care Provider Unava ilable Encounter Details Date Type Department Care Team (Latest Contact Info) Description 10/27/2006 Outpatient Historical [facility] Medicine [address] [phone] Jennifer Mckeon MD NO ADDRESS ON FILE Other and Unspecified Noninfectious Gastroenteritis and Colitis (Primary Dx); Palpitations Social History Tobacco Use Types Packs/Day Years Used Date Smoking Tobacco: Never Assessed Sex and Gender Information Value Date Recorded Sex Assigned at Not on file 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
--- OUTSIDE RECORDS SUMMARY | 2025-08-02 14:49 | XMS_ITS | Encounter Summary ---
Author Organization [facility] Address [address] [facility] [place] [address] Care Team Providers Care Finger Lift Operator Name Role Phone Non-Staff, Physician Primary Care Provider Unava ilable Encounter Details Date Type Department Care Team (Late st Contact Info) Description 12/01/2006 Outpatient Historical [facility] [place] [place] [id number] Social History Tobacco Use Types Packs/Day Years Used Date Smoking Tobacco: Never Assessed Sex and Gender Information Value Date Recorded Sex Assigned at Not on file Legal Sex Male 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
--- OUTSIDE RECORDS SUMMARY | 2025-08-02 14:49 | XMS_ITS | Encounter Summary ---
Author Organization [facility] Address [address] [place] [address] Care Team Providers Care Dot Etcher Name Role Phone Non-Staff, Physician Primary Care Provider Unava ilable Encounter Details Date Type Department Care Team (Late st Contact Info) Description 04/13/2007 Outpatient Historical [facility] Orthopedics- 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
--- OUTSIDE RECORDS SUMMARY | 2025-08-02 14:49 | XMS_ITS | Encounter Summary ---
Author Organization [facility] Address [address] [place] [address] Care Team Providers Care Barrel Burner Name Role Phone Non-Staff, Physician Primary Care Provider Unava ilable Encounter Details Date Type Department Care Team (Latest Contact Info) Description 12/23/2006 Outpatient Historical [facility] Cardiology- [place] [address] [place] [address] Abimbola Guy, [place] [address] [place] [phone] Atrial Fibrillation (CMS/HCC) (Primary Dx) Social History Tobacco Use Types Packs/Day Years Used Date Smoking Tobacco: Never Assessed Sex and Gender Information Value Date Recorded Sex Assigned at Not on file 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
--- OUTSIDE RECORDS SUMMARY | 2025-08-02 14:49 | XMS_ITS | Encounter Summary ---
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 Gender Identity Not on file Sexual Orientation Not on file documented as of this encounter Plan of Treatment Not on file documented as of this encounter Procedures Procedure Name Priority Date/Time Associated Diagnosis Comments RICKETTSIA RICKETTSII IGG/IGM ABS Routine 05/27/2007 11:42 AM CDT EHRLICHIA ANTIBODY Routine 05/27/2007 11 :42 AM CDT FEBRILE AGGLUTININS Routine 05/27/2007 1 1:42 AM CDT documented in this encounter Results * RICKETTSIA RICKETTSII IGG/IGM ABS (05/27/2007 11:42 AM CDT) RMSF AB See Sep Report INTERFACE SYSTEM 05/27/2007 11:4 2 AM CDT us Physician Non-Staff CHEMISTRY ORDERABLES Final R esult INTERFACE SYSTEM Refer to clinic/hospital department * FEBRILE AGGLUTININS (05/27/2007 11:42 AM CDT) FEBRILE AGGLUTININS See Sep Report INTERFACE SYSTEM 05/27/2007 11:4 2 AM CDT us Physician Non-Staff CHEMISTRY ORDERABLES Edited Performing Organization Address [facility] Co de Phone Number INTERFACE SYSTEM Refer to clinic/hospital department * EHRLICHIA ANTIBODY (05/27/2007 11:42 AM CDT) EHRLICHIA AB See Sep Report INTERFACE SYSTEM 05/27/2007 11:4 2 AM CDT us Physician Non-Staff CHEMISTRY ORDERABLES Edited Performing Organization Address City/[facility] Co de Phone Number INTERFACE SYSTEM Refer to clinic/hospital department documented in this encounter Visit Diagnoses Not on filedocumented in this encounter Care Teams Membership Correspondent Relationship Specialty Start Date End Date Non-Staff, Physician NO ADDRESS ON FILE PCP - General 01/22/14 documented as of this encounter
--- OUTSIDE RECORDS SUMMARY | 2025-08-02 14:49 | XMS_ITS | Encounter Summary ---
Author Organization [facility] Address [address] [place] [address] Care Team Providers Care Cryptographer Name Role Phone Non-Staff, Physician Primary Care Provider Unava ilable Encounter Details Date Type Department Care Team (Late st Contact Info) Description 05/11/2007 Outpatient [facility] [address] [place] [phone] Pramod Ramirez MD [address] [place] [phone] Primary Localized Osteoarthrosis, Lower Leg (Primary Dx) Social History Tobacco Use Types Packs/Day Years Used Date Smoking Tobacco: Never Assessed Sex and Gender Information Value Date Recorded Sex Assigned at Not on file 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
--- OUTSIDE RECORDS SUMMARY | 2025-08-02 14:49 | XMS_ITS | Encounter Summary ---
Author Organization [facility] Address [address] [place] [address] Care Team Providers Care Molder Apprentice Name Role Phone Non-Staff, Physician Primary Care Provider Unava ilable Encounter Details Date Type Department Care Team (Late st Contact Info) Description 04/20/2007 Outpatient Historical [facility] Orthopedics- 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
--- OUTSIDE RECORDS SUMMARY | 2025-08-02 14:49 | XMS_ITS | Encounter Summary ---
Author Organization [facility] Address [address] [place] [address] Care Team Providers Care Ed Special Education Teacher Name Role Phone Non-Staff, Physician Primary Care Provider Unava ilable Encounter Details Date Type Department Care Team (Latest Contact Info) Description 06/29/2006 Outpatient Historical [facility] Cardiology- [place] [address] [place] [address] Blessing Chávez MD [address] [facility] [address] [place] [address] Atrial Fibrillation (CMS/HCC) (Primary Dx) Social History Tobacco Use Types Packs/Day Years Used Date Smoking Tobacco: Never Assessed Sex and Gender Information Value Date Recorded Sex Assigned at Not on file 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
--- OUTSIDE RECORDS SUMMARY | 2025-08-02 14:49 | XMS_ITS | Encounter Summary ---
Author Organization [facility] Address [address] [facility] [place] [address] Care Team Providers Care Senior Mainframe Programmer Analyst Name Role Phone Non-Staff, Physician Primary Care Provider Unava ilable Encounter Details Date Type Department Care Team (Latest Contact Info) Description 05/27/2007 Outpatient Historical [facility] Medicine [address] [phone] Inna Degroot NP NO ADDRESS ON FILE Fever (Primary Dx); Other Malaise and Fatigue; Unspecified Myalgia and Myositis Social History Tobacco Use Types Packs/Day Years Used Date Smoking Tobacco: Never Assessed Sex and Gender Information Value Date Recorded Sex Assigned at Not on file 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
--- OUTSIDE RECORDS SUMMARY | 2025-08-02 14:49 | XMS_ITS | Encounter Summary ---
Author Organization [facility] Address [address] [place] [address] Care Team Providers Care Binding Dyer Name Role Phone Non-Staff, Physician Primary Care Provider Unava ilable Encounter Details Date Type Department Care Team (Late st Contact Info) Description 12/07/2006 Outpatient Historical [facility] Orthopedics- 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
--- OUTSIDE RECORDS SUMMARY | 2025-08-02 14:49 | XMS_ITS | Encounter Summary ---
Author Organization [facility] Address [address] [place] [address] Care Team Providers Care Credit Review Officer Name Role Phone Non-Staff, Physician Primary Care Provider Unava ilable Encounter Details Date Type Department Care Team (Latest Contact Info) Description 08/24/2006 Outpatient Historical [facility] Cardiology- [place] [address] [place] [address] Abimbola Guy, [place] [address] [place] [phone] Atrial Fibrillation (CMS/HCC) (Primary Dx) Social History Tobacco Use Types Packs/Day Years Used Date Smoking Tobacco: Never Assessed Sex and Gender Information Value Date Recorded Sex Assigned at Not on file 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
--- OUTSIDE RECORDS SUMMARY | 2025-08-02 14:49 | XMS_ITS | Patient Health Record ---
Author Organization [facility] Address [address] [place] [address] Support Name Relationship Address , [place] Emergency Contact Unknown Un available Moises Marte Guarantor Unknown [phone] Care Team Providers Care Safe Expert Name Role Phone Aydin Carreno Primary Care Provider Annie Nicholas Unavailable [phone] Jonatan Guerra Unavailable [phone] Allergies Allergen (clinical drug ingredient) Drug/Non Drug Allergy documented on EMR Reaction Allergy Type Onset Date Status zonisamide Zonisamide paranoia, insomnia, hot flashes, anxiety & anger Drug Allergy Active Gluten Gluten rash Allergy Active Results Component Value Reference Range Flag Notes zzzUrine Drug Screen (confir mation by instrument) - [id number] Reviewed date:10/11/2024 04:18:26 PM Interpretation: Performing Lab: Notes/Report: Urine Drug Screen (cup read) - [id number] Reviewed date:08/02/2025 02:46:53 PM Interpretation: Performing Lab: Notes/Report: OXY + Tox Results Reviewed date:06/05/2025 12:33:47 PM Interpretation: Performing Lab: Notes/Report: Urine Confirmation Panel (in strument) - [id number] Reviewed date:06/05/2025 12:33:47 PM Interpretation: Performing Lab: Notes/Report: 6-Acetylmorphine 0 <6 ng/mL N This marycruz t was developed and its performance characteristics determined by [facility]. It has not been cleared or approved by the U.S. Food and Drug Administration. 7-Aminoclonazepam 0 <60 ng/mL N This te st was developed and its performance characteristics determined by [facility]. It has not been cleared or approved by the U.S. Food and Drug Administration. Alprazolam 0 <60 ng/mL N This test was developed and its performance characteristics determined by [facility]. It has not been cleared or approved by the U.S. Food and Drug Administration. Amphetamine 0 <75 ng/mL N This test was developed and its performance characteristics determined by [facility]. It has not been cleared or approved by the U.S. Food and Drug Administration. aOH-Alprazolam 0 <60 ng/mL N This test was developed and its performance characteristics determined by [facility]. It has not been cleared or approved by the U.S. Food and Drug Administration. Buprenorphine 0.0 <7.5 ng/mL N This test w as developed and its performance characteristics determined by [facility]. It has not been cleared or approved by the U.S. Food and Drug Administration. Norbuprenorphine 0.0 <37.5 ng/mL N This te st was developed and its performance characteristics determined by [facility]. It has not been cleared or approved by the U.S. Food and Drug Administration. Carisoprodol 0 <75 ng/mL N This test wa s developed and its performance characteristics determined by [facility]. It has not been cleared or approved by the U.S. Food and Drug Administration. Codeine 0 <75 ng/mL N This test was developed and its performance characteristics determined by [facility]. It has not been cleared or approved by the U.S. Food and Drug Administration. EDDP 0 <75 ng/mL N This test was developed and its performance characteristics determined by [facility]. It has not been cleared or approved by the U.S. Food and Drug Administration. Fentanyl 0 <6 ng/mL N This test was developed and its performance characteristics determined by [facility]. It has not been cleared or approved by the U.S. Food and Drug Administration. Hydrocodone 0 <75 ng/mL N This test was developed and its performance characteristics determined by [facility]. It has not been cleared or approved by the U.S. Food and Drug Administration. Hydromorphone 0 <75 ng/mL N This test w as developed and its performance characteristics determined by [facility]. It has not been cleared or approved by the U.S. Food and Drug Administration. Lorazepam 0 <60 ng/mL N This test was developed and its performance characteristics determined by [facility]. It has not been cleared or approved by the U.S. Food and Drug Administration. MDMA 0 <75 ng/mL N This test was developed and its performance characteristics determined by [facility]. It has not been cleared or approved by the U.S. Food and Drug Administration. Meperidine 0.0 <37.5 ng/mL N This test was developed and its performance characteristics determined by [facility]. It has not been cleared or approved by the U.S. Food and Drug Administration. Meprobamate 0 <75 ng/mL N This test was developed and its performance characteristics determined by [facility]. It has not been cleared or approved by the U.S. Food and Drug Administration. Methamphetamine 0 <75 ng/mL N This test was developed and its performance characteristics determined by [facility]. It has not been cleared or approved by the U.S. Food and Drug Administration. Methadone 0 <75 ng/mL N This test was developed and its performance characteristics determined by [facility]. It has not been cleared or approved by the U.S. Food and Drug Administration. Morphine 0 <75 ng/mL N This test was developed and its performance characteristics determined by [facility]. It has not been cleared or approved by the U.S. Food and Drug Administration. Nordiazepam 0 <60 ng/mL N This test was developed and its performance characteristics determined by [facility]. It has not been cleared or approved by the U.S. Food and Drug Administration. Norfentanyl 0 <6 ng/mL N This test was developed and its performance characteristics determined by [facility]. It has not been cleared or approved by the U.S. Food and Drug Administration. Normeperidine 0.0 <37.5 ng/mL N This test was developed and its performance characteristics determined by [facility]. It has not been cleared or approved by the U.S. Food and Drug Administration. O-desmethyltramadol 0 <75 ng/mL N This test was developed and its performance characteristics determined by [facility]. It has not been cleared or approved by the U.S. Food and Drug Administration. Oxazepam 0 <60 ng/mL N This test was developed and its performance characteristics determined by [facility]. It has not been cleared or approved by the U.S. Food and Drug Administration. Oxycodone 1075.0 <37.5 ng/mL H This test was developed and its performance characteristics determined by [facility]. It has not been cleared or approved by the U.S. Food and Drug Administration. Oxymorphone 200 <75 ng/mL H This test was developed and its performance characteristics determined by [facility]. It has not been cleared or approved by the U.S. Food and Drug Administration. Phencyclidine 0.0 <7.5 ng/mL N This test w as developed and its performance characteristics determined by [facility]. It has not been cleared or approved by the U.S. Food and Drug Administration. Tapentadol 0.0 <37.5 ng/mL N This test was developed and its performance characteristics determined by [facility]. It has not been cleared or approved by the U.S. Food and Drug Administration. Temazepam 0 <60 ng/mL N This test was developed and its performance characteristics determined by [facility]. It has not been cleared or approved by the U.S. Food and Drug Administration. Tramadol 0 <75 ng/mL N This test was developed and its performance characteristics determined by [facility]. It has not been cleared or approved by the U.S. Food and Drug Administration. Norhydrocodone 0 <75 ng/mL N This test was developed and its performance characteristics determined by [facility]. It has not been cleared or approved by the U.S. Food and Drug Administration. Noroxycodone 2262 <38 ng/mL H This test wa s developed and its performance characteristics determined by [facility]. It has not been cleared or approved by the U.S. Food and Drug Administration. Pregabalin 0 <225 ng/mL N This test was developed and its performance characteristics determined by [facility]. It has not been cleared or approved by the U.S. Food and Drug Administration. Gabapentin 0 <225 ng/mL N This test was developed and its performance characteristics determined by [facility]. It has not been cleared or approved by the U.S. Food and Drug Administration. Benzoylecgonine 0.0 <37.5 ng/mL N This marycruz t was developed and its performance characteristics determined by [facility]. It has not been cleared or approved by the U.S. Food and Drug Administration. 4-Hydroxy Xylazine 0 <25 ng/mL N This t est was developed and its performance characteristics determined by [facility]. It has not been cleared or approved by the U.S. Food and Drug Administration. Urine Drug Screen (cup read) - [id number] Reviewed date:05/31/2025 03:06:04 PM Interpretation: Performing Lab: Notes/Report: OXY + Tox Results Reviewed date:02/08/2025 02:41:51 PM Interpretation: Performing Lab: Notes/Report: Urine Confirmation Panel (in strument) - [id number] Reviewed date:02/08/2025 02:31:36 PM Interpretation: Performing Lab: Notes/Report: 6-Acetylmorphine 0 <6 ng/mL N This marycruz t was developed and its performance characteristics determined by [facility]. It has not been cleared or approved by the U.S. Food and Drug Administration. 7-Aminoclonazepam 0 <60 ng/mL N This te st was developed and its performance characteristics determined by [facility]. It has not been cleared or approved by the U.S. Food and Drug Administration. Alprazolam 0 <60 ng/mL N This test was developed and its performance characteristics determined by [facility]. It has not been cleared or approved by the U.S. Food and Drug Administration. Amphetamine 0 <75 ng/mL N This test was developed and its performance characteristics determined by [facility]. It has not been cleared or approved by the U.S. Food and Drug Administration. aOH-Alprazolam 0 <60 ng/mL N This test was developed and its performance characteristics determined by [facility]. It has not been cleared or approved by the U.S. Food and Drug Administration. Buprenorphine 2.7 <7.5 ng/mL N This test w as developed and its performance characteristics determined by [facility]. It has not been cleared or approved by the U.S. Food and Drug Administration. Norbuprenorphine 0.0 <37.5 ng/mL N This te st was developed and its performance characteristics determined by [facility]. It has not been cleared or approved by the U.S. Food and Drug Administration. Carisoprodol 0 <75 ng/mL N This test wa s developed and its performance characteristics determined by [facility]. It has not been cleared or approved by the U.S. Food and Drug Administration. Codeine 0 <75 ng/mL N This test was developed and its performance characteristics determined by [facility]. It has not been cleared or approved by the U.S. Food and Drug Administration. EDDP 0 <75 ng/mL N This test was developed and its performance characteristics determined by [facility]. It has not been cleared or approved by the U.S. Food and Drug Administration. Fentanyl 1 <6 ng/mL N This test was developed and its performance characteristics determined by [facility]. It has not been cleared or approved by the U.S. Food and Drug Administration. Hydrocodone 0 <75 ng/mL N This test was developed and its performance characteristics determined by [facility]. It has not been cleared or approved by the U.S. Food and Drug Administration. Hydromorphone 0 <75 ng/mL N This test w as developed and its performance characteristics determined by [facility]. It has not been cleared or approved by the U.S. Food and Drug Administration. Lorazepam 0 <60 ng/mL N This test was developed and its performance characteristics determined by [facility]. It has not been cleared or approved by the U.S. Food and Drug Administration. MDMA 0 <75 ng/mL N This test was developed and its performance characteristics determined by [facility]. It has not been cleared or approved by the U.S. Food and Drug Administration. Meperidine 0.0 <37.5 ng/mL N This test was developed and its performance characteristics determined by [facility]. It has not been cleared or approved by the U.S. Food and Drug Administration. Meprobamate 0 <75 ng/mL N This test was developed and its performance characteristics determined by [facility]. It has not been cleared or approved by the U.S. Food and Drug Administration. Methamphetamine 2 <75 ng/mL N This test was developed and its performance characteristics determined by [facility]. It has not been cleared or approved by the U.S. Food and Drug Administration. Methadone 0 <75 ng/mL N This test was developed and its performance characteristics determined by [facility]. It has not been cleared or approved by the U.S. Food and Drug Administration. Morphine 0 <75 ng/mL N This test was developed and its performance characteristics determined by [facility]. It has not been cleared or approved by the U.S. Food and Drug Administration. Nordiazepam 0 <60 ng/mL N This test was developed and its performance characteristics determined by [facility]. It has not been cleared or approved by the U.S. Food and Drug Administration. Norfentanyl 1 <6 ng/mL N This test was developed and its performance characteristics determined by [facility]. It has not been cleared or approved by the U.S. Food and Drug Administration. Normeperidine 0.0 <37.5 ng/mL N This test was developed and its performance characteristics determined by [facility]. It has not been cleared or approved by the U.S. Food and Drug Administration. O-desmethyltramadol 0 <75 ng/mL N This test was developed and its performance characteristics determined by [facility]. It has not been cleared or approved by the U.S. Food and Drug Administration. Oxazepam 0 <60 ng/mL N This test was developed and its performance characteristics determined by [facility]. It has not been cleared or approved by the U.S. Food and Drug Administration. Oxycodone 534.0 <37.5 ng/mL H This test was developed and its performance characteristics determined by [facility]. It has not been cleared or approved by the U.S. Food and Drug Administration. Oxymorphone 317 <75 ng/mL H This test was developed and its performance characteristics determined by [facility]. It has not been cleared or approved by the U.S. Food and Drug Administration. Phencyclidine 0.0 <7.5 ng/mL N This test w as developed and its performance characteristics determined by [facility]. It has not been cleared or approved by the U.S. Food and Drug Administration. Tapentadol 13.9 <37.5 ng/mL N This test was developed and its performance characteristics determined by [facility]. It has not been cleared or approved by the U.S. Food and Drug Administration. Temazepam 7 <60 ng/mL N This test was developed and its performance characteristics determined by [facility]. It has not been cleared or approved by the U.S. Food and Drug Administration. Tramadol 0 <75 ng/mL N This test was developed and its performance characteristics determined by [facility]. It has not been cleared or approved by the U.S. Food and Drug Administration. Norhydrocodone 0 <75 ng/mL N This test was developed and its performance characteristics determined by [facility]. It has not been cleared or approved by the U.S. Food and Drug Administration. Noroxycodone 877 <38 ng/mL H This test wa s developed and its performance characteristics determined by [facility]. It has not been cleared or approved by the U.S. Food and Drug Administration. Pregabalin 10 <225 ng/mL N This test was developed and its performance characteristics determined by [facility]. It has not been cleared or approved by the U.S. Food and Drug Administration. Gabapentin 0 <225 ng/mL N This test was developed and its performance characteristics determined by [facility]. It has not been cleared or approved by the U.S. Food and Drug Administration. Benzoylecgonine 0.0 <37.5 ng/mL N This marycruz t was developed and its performance characteristics determined by [facility]. It has not been cleared or approved by the U.S. Food and Drug Administration. 4-Hydroxy Xylazine 2 <25 ng/mL N This t est was developed and its performance characteristics determined by [facility]. It has not been cleared or approved by the U.S. Food and Drug Administration. Urine Drug Screen (cup read) - [id number] Reviewed date:02/08/2025 10:54:14 AM Interpretation: Performing Lab: Notes/Report: OXY POS Reason For Referral No Information Medications Medication SIG (Take, Route, Frequency, Duration) Notes Start Date End Date Status tiZANidine HCl 4 MG Tablet 2 tablet as needed Orally Once a day; Duration: 30 days Fill 30 days from previous Rx 05/31/2025 Active [facility]* Active Propafenone [facility]* Active Melatonin *Pick strength-f [facility]m [facility] for [facility]* Active Iron *Pick strength-f [facility]* Active duloxetine *[facility] and Interaction Alert[facility]* Active dilTIAZem HCl *[facility]* Active [facility] Active Cymbalta 30 MG Capsule Delayed Release Particles 1 capsule Orally Once a day; Duration: 30 days As needed Fill from previous Rx 11/30/2024 Active oxyCODONE HCl 10 MG Tablet 1 tablet Orally every 6 hrs; Duration: 30 days As needed Do not exceed 4 per day Fill on 07/06/2025 07/05/2025 08/05/2025 Active DULoxetine HCl 30 MG Capsule Delayed Release Particles 1 capsule Orally Once a day; Duration: 30 days Fill 30 days from previous Rx 05/31/2025 Active Social History Social History Additional Details [...] (MU) - <BLANK>, Working currently? - Yes Problems Problem Type SNOMED Code ICD Code Onset Dates Problem Status W/U Status Risk Notes Problem Chronic pain syndrome (797897136) Chronic pain syndrome (G89.4) 03/14/20 24 Active confirmed Problem Lumbosacral spondylosis without myelopathy (03561631) Other spondylosis with radiculopathy, lumbosacral region (M47.27) 03/14/20 24 Active confirmed Problem Degeneration of lumbar intervertebral disc (79957203) Other intervertebral disc degeneration, lumbar region (M51.36) 03/14/20 24 Active confirmed Problem Abnormal gait (96673841) Unspecified abnormalities of gait and mobility (R26.9) 03/14/20 24 Active confirmed Problem Spinal stenosis of lumbar region (45917483) Spinal stenosis, lumbar region without neurogenic claudication (M48.061) 03/14/20 24 Active confirmed Problem Degeneration of intervertebral disc of lumbar region with discogenic back pain (M51.360) Active confirmed Vital Signs Height-cm 193.04 cm 05/31/2025 Weight-kg 138.35 kg 05/31/2025 Height 76.00 in 05/31/2025 Weight 305 lbs 05/31/2025 BMI 37.12 kg/m2 05/31/2025 Encounters Encounter Location Date Provider Diagnosis [facility] [place] [address] [place] [address] 03/28/2025 Jonatan Guerra Chronic pain syndrom e G89.4 ; Degeneration of intervertebral disc of lumbar region with discogenic back pain M51.360 ; Other spondylosis with radiculopathy, lumbosacral region M47.27 ; Thoracic back pain, unspecified back pain laterality, unspecified chronicity M54.6 ; Unspecified abnormalities of gait and mobility R26.9 ; Spinal stenosis, lumbar region without neurogenic claudication M48.061 and shelter (current) use of opiate analgesic Z79.891 [facility] [address] [address] 01/31/2025 Jonatan Guerra Chronic pain syndrom e G89.4 ; Degeneration of intervertebral disc of lumbar region with discogenic back pain M51.360 ; Other spondylosis with radiculopathy, lumbosacral region M47.27 ; Thoracic back pain, unspecified back pain laterality, unspecified chronicity M54.6 ; Unspecified abnormalities of gait and mobility R26.9 ; Spinal stenosis, lumbar region without neurogenic claudication M48.061 and shelter (current) use of opiate analgesic Z79.891 [facility] [address] [address] 11/30/2024 Annie Solo Chronic pain syndrom e G89.4 ; Degeneration of intervertebral disc of lumbar region with discogenic back pain M51.360 ; Other spondylosis with radiculopathy, lumbosacral region M47.27 ; Spinal stenosis, lumbar region without neurogenic claudication M48.061 ; Unspecified abnormalities of gait and mobility R26.9 and shelter (current) use of opiate analgesic Z79.891 [facility] [address] [address] 10/05/2024 Annie Solo Chronic pain syndrom e G89.4 ; Degeneration of intervertebral disc of lumbar region with discogenic back pain M51.360 ; Other spondylosis with radiculopathy, lumbosacral region M47.27 ; Spinal stenosis, lumbar region without neurogenic claudication M48.061 ; Unspecified abnormalities of gait and mobility R26.9 and [employer] (current) use of opiate analgesic Z79.891 [facility] [address] [place] [address] 08/02/2025 Annie Solo Chronic pain syndrom e G89.4 ; Degeneration of intervertebral disc of lumbar region with discogenic back pain M51.360 ; Other spondylosis with radiculopathy, lumbosacral region M47.27 ; Thoracic back pain, unspecified back pain laterality, unspecified chronicity M54.6 ; Unspecified abnormalities of gait and mobility R26.9 ; Spinal stenosis, lumbar region without neurogenic claudication M48.061 and shelter (current) use of opiate analgesic Z79.891 [facility] [place] [address] [place] [phone] 08/02/2024 Jonatan Guerra [facility] [place] [address] [place] [phone] 05/31/2025 Annie Solo Chronic pain syndrom e G89.4 ; Degeneration of intervertebral disc of lumbar region with discogenic back pain M51.360 ; Other spondylosis with radiculopathy, lumbosacral region M47.27 ; Thoracic back pain, unspecified back pain laterality, unspecified chronicity M54.6 ; Unspecified abnormalities of gait and mobility R26.9 ; Spinal stenosis, lumbar region without neurogenic claudication M48.061 and shelter (current) use of opiate analgesic Z79.891 [facility] [address] [place] [address] 07/03/2025 Jonatan Guerra Other spondylosis wi th radiculopathy, lumbosacral region M47.27 [facility] [place] [address] [place] [phone] 05/31/2025 Jonatan Guerra Other spondylosis wi th radiculopathy, lumbosacral region M47.27 and Chronic pain syndrome G89.4 [facility] [address] [facility] [place] [address] 04/30/2025 Jonatan Guerra Other spondylosis wi th radiculopathy, lumbosacral region M47.27 [facility] [place] [address] [place], [place] [address] [address] 11/30/2024 Jonatan Ballesterosaaronfrantz [facility] [place] [address] [facility] [place] [address] 11/06/2024 Jonatan Ballesterosaaronfrantz [facility] [place] [address] [facility] [place] [address] 10/05/2024 Jonatan Ballesterosaaronfrantz [facility] [address] [place] [address] 10/05/2024 Jonatan Guerra Assessments Encounter Date Diagnosis (ICD Code) Assessment Notes Treatment Notes Treatment Clinical Notes Section Notes 10/05/2024 Chronic pain syndrome (ICD-10 - G89.4) I had a nice discussion with the patient today regarding his chronic pain complaints. He is doing reasonably well on his current medication regimen. He has had some return of his lower back pain as well as radicular symptoms and would like to repeat another LESI but is needing to wait until he gets the previous LESI will pay down some more. He will keep us updated when he is ready to proceed with this. He denies any other changes with his health or any untoward side effects of the medication. He will continue his medication at present level and return to clinic in 2 months to monitor for treatment effectiveness and compliance. 10/05/2024 Degeneration of intervertebral disc of lumbar region with discogenic back pain (ICD-10 - M51.360) 11/30/2024 Chronic pain syndrome (ICD-10 - G89.4) I had a nice discussion with the patient today regarding his chronic pain complaints. He states he is doing well on his current medication regimen. He is having some more lower back pain as well as radicular symptoms but states he has to get his other injections paid off before he can proceed with another LESI. I did review his most recent MRI with him again today. He denies any changes in his health since we last seen him or any untoward side effects of the medication. He feels this medication does allow him to function better overall. He will continue his medication at present level and return to clinic in 2 months to monitor for treatment effectiveness and compliance as well as for biannual appointment with Dr. Guerra. The patient continues with chronic pain requiring treatment to help restore function and improve quality of life. Risks of opioid therapy as well as interaction of opioids with alcohol, illicit drugs, muscle relaxers, and other sedative medications are reviewed briefly with patient again today. The patient has trialed all other reasonable treatment options and uses the medication to alleviate pain in order to remain active and rest with less pain. No clinically relevant medication side effects are noted. Last UDS and AR ANALYTICAL STRATEGIST reviewed today. Patient is advised that best long-term goals include increased activity, core strengthening, proper weight management, coping strategies, avoidance of painful triggers, and targeted interventional therapy. We will see the patient for routine follow up in accordance with all clinic policies. We did remind patient today of current guidelines to decrease opioid when possible. We will continue to stress nonopioid treatment. 01/31/2025 Chronic pain syndrome (ICD-10 - G89.4) I had a nice visit with the patient today regarding his chronic pain issues. Overall he seems to be doing alright. The medications seem to control his symptoms fairly well. He denies any new problems or issues. He is interested in potentially scheduling a repeat epidural at some point, but he wants to get some things paid off before he does that. We will continue everything for the next 2 months and follow up with him thereafter. 01/31/2025 Degeneration of intervertebral disc of lumbar region with discogenic back pain (ICD-10 - M51.360) 03/28/2025 Chronic pain syndrome (ICD-10 - G89.4) I had a nice visit with the patient today regarding his chronic pain issues. Overall, he seems to be maintaining fairly well. He does a lot of work, both at work and outside of that, and he goes to the river most weekends and floats. So he maintains a pretty busy lifestyle. The medication regimen remains effective, so we will see him back in a couple of months. 04/30/2025 Other spondylosis with radiculopathy, lumbosacral region (ICD-10 - M47.27) 05/31/2025 Chronic pain syndrome (ICD-10 - G89.4) I had a nice discussion with the patient today regarding his chronic pain complaints. He continues with mid back and lower back pain. He states with the help of his medication he is able to function okay overall. He does state he has been having some increased muscle spasms at night so we did discuss increasing his tizanidine 4 mg to 2 nightly. He tries to stay as active as possible and works full-time. He does state that all last weekend they went floating on the river and camping. He denies any other changes since we last seen him or any untoward side effects of the medication. I did discuss lifestyle modifications as well as a bowel regimen. He will continue his medication at present level and return to clinic in 2 months to monitor for treatment effectiveness and compliance. The patient continues with chronic pain requiring treatment to help restore function and improve quality of life. Risks of opioid therapy as well as interaction of opioids with alcohol, illicit drugs, muscle relaxers, and other sedative medications are reviewed briefly with patient again today. The patient has trialed all other reasonable treatment options and uses the medication to alleviate pain in order to remain active and rest with less pain. No clinically relevant medication side effects are noted. Last UDS and AR ANALYTICAL STRATEGIST reviewed today. Patient is advised that best long-term goals include increased activity, core strengthening, proper weight management, coping strategies, avoidance of painful triggers, and targeted interventional therapy. We will see the patient for routine follow up in accordance with all clinic policies. We did remind patient today of current guidelines to decrease opioid when possible. We will continue to stress nonopioid treatment. RECOMMEND URINE TESTING TODAY Urine drug screening will be performed today to monitor compliance with opioid therapy or to serve as a baseline screen for a patient who may be a candidate for opioid therapy in the future, pending UDS results. We will monitor with in-office testing (rapid testing) today and review the results prior to dispensing prescription. All positive results will be sent for quantitative analysis to ensure accuracy and quantify amounts. Any expected positive results that return negative will also be sent for quantitative analysis. Any questionable read or any medication we cannot test for in the office confidently will be sent for quantitative analysis, as well. Patient has been made aware of this policy and agrees to abide by our urine testing policy. 05/31/2025 Other spondylosis with radiculopathy, lumbosacral region (ICD-10 - M47.27) 07/03/2025 Other spondylosis with radiculopathy, lumbosacral region (ICD-10 - M47.27) 08/02/2025 Chronic pain syndrome (ICD-10 - G89.4) I had a nice discussion with the patient today regarding his chronic pain complaints. He continues with lower back pain and mid back pain. He feels to help with his medication he is able to function better overall. He does not feel the need for any interventional procedures right now. He does state that he has been in A-fib for 14 days now. He states he is just not really feeling well and is probably going to go to the ER regarding this as it is not seeming to go back in rhythm. I did encourage him to do so. He denies any other changes since we last seen him or any untoward side effects of the medication. I did discuss lifestyle modifications as well as a bowel regimen. He will continue his medication at present level and return to clinic in 2 months to monitor for treatment effectiveness and compliance. 08/02/2025 Degeneration of intervertebral disc of lumbar region with discogenic back pain (ICD-10 - M51.360) 05/31/2025 Degeneration of intervertebral disc of lumbar region with discogenic back pain (ICD-10 - M51.360) 05/31/2025 Chronic pain syndrome (ICD-10 - G89.4) 03/28/2025 Degeneration of intervertebral disc of lumbar region with discogenic back pain (ICD-10 - M51.360) 11/30/2024 Degeneration of intervertebral disc of lumbar region with discogenic back pain (ICD-10 - M51.360) 01/31/2025 Other spondylosis with radiculopathy, lumbosacral region (ICD-10 - M47.27) 10/05/2024 Other spondylosis with radiculopathy, lumbosacral region (ICD-10 - M47.27) 11/30/2024 Other spondylosis with radiculopathy, lumbosacral region (ICD-10 - M47.27) 10/05/2024 Spinal stenosis, lumbar region without neurogenic claudication (ICD-10 - M48.061) 03/28/2025 Other spondylosis with radiculopathy, lumbosacral region (ICD-10 - M47.27) 01/31/2025 Thoracic back pain, unspecified back pain laterality, unspecified chronicity (ICD-10 - M54.6) 05/31/2025 Other spondylosis with radiculopathy, lumbosacral region (ICD-10 - M47.27) 08/02/2025 Other spondylosis with radiculopathy, lumbosacral region (ICD-10 - M47.27) 05/31/2025 Thoracic back pain, unspecified back pain laterality, unspecified chronicity (ICD-10 - M54.6) 03/28/2025 Thoracic back pain, unspecified back pain laterality, unspecified chronicity (ICD-10 - M54.6) 11/30/2024 Spinal stenosis, lumbar region without neurogenic claudication (ICD-10 - M48.061) 01/31/2025 Unspecified abnormalities of gait and mobility (ICD-10 - R26.9) 10/05/2024 Unspecified abnormalities of gait and mobility (ICD-10 - R26.9) 08/02/2025 Thoracic back pain, unspecified back pain laterality, unspecified chronicity (ICD-10 - M54.6) 10/05/2024 shelter (current) use of opiate analgesic (ICD-10 - Z79.891) 11/30/2024 Unspecified abnormalities of gait and mobility (ICD-10 - R26.9) 01/31/2025 Spinal stenosis, lumbar region without neurogenic claudication (ICD-10 - M48.061) 03/28/2025 Unspecified abnormalities of gait and mobility (ICD-10 - R26.9) 05/31/2025 Unspecified abnormalities of gait and mobility (ICD-10 - R26.9) 08/02/2025 Unspecified abnormalities of gait and mobility (ICD-10 - R26.9) 05/31/2025 Spinal stenosis, lumbar region without neurogenic claudication (ICD-10 - M48.061) 03/28/2025 Spinal stenosis, lumbar region without neurogenic claudication (ICD-10 - M48.061) 11/30/2024 shelter (current) use of opiate analgesic (ICD-10 - Z79.891) 01/31/2025 shelter (current) use of opiate analgesic (ICD-10 - Z79.891) 08/02/2025 Spinal stenosis, lumbar region without neurogenic claudication (ICD-10 - M48.061) 03/28/2025 shelter (current) use of opiate analgesic (ICD-10 - Z79.891) 05/31/2025 [facility] (current) use of opiate analgesic (ICD-10 - Z79.891) 08/02/2025 i&c tech (current) use of opiate analgesic (ICD-10 - Z79.891) 01/31/2025 Other I, BARRY Peacock, am scribing for Dr. Jonatan Guerra. I, Dr. Jonatan Guerra, personally performed the services described in this documentation, as scribed by BARRY Peacock , and it is both accurate and complete. 03/28/2025 Other Kristen Arias NCMA, jazz scribing for Dr. Jonatan Guerra. I, Dr. Jonatan Guerra, personally performed the services described in this documentation, as scribed by BARRY Peacock, and it is both accurate and complete. Plan Of Treatment Next Appt Details Provider Name:Jonatan Guerra, 09/26/2025 09:40:00 AM, [address] [place], [address], Insurance Providers Payer Name Payer Address Payer Phone Subscriber Number Group Number Insured Name Patient Relationship to Insured Coverage Start Date Coverage End Date [facility] [address] [place] [id number] Moises Marte Self - patient is the insured Medical (General) History Medical History History ICD Code Atrial fibrillation Arthritis Surgical History Surgery Date(Month/Year) Cholecystectomy Knee replacement surgery rightwrist
--- OUTSIDE RECORDS SUMMARY | 2025-08-02 14:49 | XMS_ITS | Encounter Summary ---
Author Organization [facility] Address [address] [place] [address] Care Team Providers Care Vinyl Flooring Installer Name Role Phone Non-Staff, Physician Primary Care Provider Unava ilable Encounter Details Date Type Department Care Team (Late st Contact Info) Description 04/27/2007 Outpatient Historical [facility] Orthopedics- 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
--- OUTSIDE RECORDS SUMMARY | 2025-08-02 14:49 | XMS_ITS | Encounter Summary ---
Author Organization [facility] Address [address] [place] [address] Care Team Providers Care Statement Clerks Manager Name Role Phone Non-Staff, Physician Primary Care Provider Unava ilable Encounter Details Date Type Department Care Team (Late st Contact Info) Description 05/04/2007 Outpatient [facility] [address] [place] [phone] Pramod Ramirez MD [address] [place] [phone] Primary Localized Osteoarthrosis, Lower Leg (Primary Dx) Social History Tobacco Use Types Packs/Day Years Used Date Smoking Tobacco: Never Assessed Sex and Gender Information Value Date Recorded Sex Assigned at Not on file 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
--- OUTSIDE RECORDS SUMMARY | 2025-08-02 14:49 | XMS_ITS | Encounter Summary ---
Author Organization [facility] Address [address] [place] [address] Care Team Providers Care Cutter Tender Name Role Phone Non-Staff, Physician Primary Care Provider Unava ilable Encounter Details Date Type Department Care Team (Latest Contact Info) Description 08/24/[address] [facility] Orthopedics- 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
--- OUTSIDE RECORDS SUMMARY | 2025-08-02 14:49 | XMS_ITS | Encounter Summary ---
Author Organization [facility] Address [address] [facility] [place] [address] Care Team Providers Care Knife Setter Assembler Name Role Phone Non-Staff, Physician Primary Care Provider Unava ilable Encounter Details Date Type Department Care Team (Latest Contact Info) Description 11/30/2006 Outpatient Historical [facility] Medicine [address] [phone] Inna Degroot NP NO ADDRESS ON FILE Injury, Other and Unspecified, Elbow, Forearm, and Wrist (Primary Dx); Pain in Joint, Forearm; Pain in Joint, Lower Leg Social History Tobacco Use Types Packs/Day Years Used Date Smoking Tobacco: Never Assessed Sex and Gender Information Value Date Recorded Sex Assigned at Not on file 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
--- OUTSIDE RECORDS SUMMARY | 2025-08-02 14:49 | XMS_ITS | Encounter Summary ---
Author Organization [facility] [address] [facility] [address] Care Team Providers Care Rn Physician Office Name Role Phone Non-Staff, Physician Primary Care Provider Unava ilable Encounter Details Date Type Department Care Team (Latest Contact Info) Description 05/25/2007 Outpatient Historical [facility] Family Medicine- [address] [place] [phone] Inna Degroot NP NO ADDRESS ON FILE Fever (Primary Dx); Tick-Borne Fever; Unspecified Myalgia and Myositis Social History Tobacco Use Types Packs/Day Years Used Date Smoking Tobacco: Never Assessed Sex and Gender Information Value Date Recorded Sex Assigned at Not on file 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
[2025-08-02 14:50] VITALS: BP 145/100; PULSE 95; RESP 17; TEMP 37; O2SAT 96; BMI 37.7
--- NOTE | 2025-08-02 15:25 | W.ED.ARRPALP ---
HPI - Arrhythmia/Palpitations General: Chief Complaint: Arrhythmia/Palpitations Stated Complaint: hb too fast Time Seen by Provider: 08/02/25 15:13 Source: patient Mode of arrival: ambulatory Limitations: no limitations History of Present Illness: Patient is a very nice 59-year-old male with a history of paroxysmal atrial fibrillation in which he takes diltiazem and propafenone for here for concerns of staying in atrial fibrillation x 14 days . He states he normally will stay in normal sinus rhythm but sometimes can feel himself go into atrial fibrillation but states this will usually only last a few hours to a few days. States he has felt like he is in atrial fibrillation for two weeks now. He does not complain of dizziness although states when he bends over and stands up too quickly he will feel a little woozy. He is not having any orthopnea. He has questioned some possible swelling to his lower legs. 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 complaint: atrial fibrillation Onset (ago): week(s) Duration: constant Severity: mild Arrhythmia history: atrial fibrillation Associated symptoms: Reports no associated symptoms; Deny pre-syncope or syncope Related Data Home Medications ?Medication ?Instructions ?Recorded ?Confirmed duloxetine 30 mg capsule,delayed 30 mg PO ONCE 12/29/24 02/07/25 release oxycodone 10 mg tablet 10 mg PO Q6H 12/29/24 02/07/25 tizanidine 4 mg tablet 4 mg PO BID 12/29/24 02/07/25 Previous Rx's ?Medication ?Instructions ?Recorded aspirin 81 mg tablet,delayed See Rx Instructions .Route 08/19/20 release (Jj Low Dose Aspirin) .COMPLEX #30 ea diltiazem HCl 120 mg See Rx Instructions .Route 09/08/24 capsule,extended release 24 hr .COMPLEX #90 caps propafenone 150 mg tablet See Rx Instructions .Route 10/10/24 .COMPLEX #180 tabs trazodone 100 mg tablet See Rx Instructions .Route 05/17/25 .COMPLEX #90 tabs losartan 25 mg tablet See Rx Instructions .Route 07/16/25 .COMPLEX #30 tabs Allergies Allergy/AdvReac Type Severity Reaction Status Date / Time gluten Allergy Unknown Unknown Verified 02/07/25 13:15 gabapentin Allergy [employer] Verified 02/07/25 13:15 methocarbamol (From Robaxin) Allergy fast heart Verified 02/07/25 13:15 rate pregabalin (From Lyrica) Allergy [employer] Verified 02/07/25 13:15 Review of Systems Const: Denies: fever(s), chills, body aches, fatigue or malaise Card: Reports: palpitations, irregular heart rhythm and edema; Denies: chest pain, lightheadedness, syncope, pre-syncope, orthopnea, leg pain with exertion or acrocyanosis Resp: Denies: dyspnea or chest congestion Neuro: Denies: headache(s), numbness in extremities, weakness in extremities, sensory changes or dizziness PFS ED PFSH: Medical History Impacted cerumen of left ear Prostate cancer screening Lower respiratory infection COVID-19 vaccine series completed Modern 12/11/2020 and 01/08/2021 Benign hypertension Eczema Anemia Folate deficiency Vitamin B12 deficiency (non anemic) Lower respiratory infection Close exposure to COVID-19 virus Recurrent UTI Hematuria Mixed hyperlipidemia Medication management Vitamin D deficiency Hematuria Essential hypertension Insomnia Atrial fibrillation Osteoarthritis Gluten intolerance Gout Obesity Acute left lumbar radiculopathy 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, lumbar region Spondylosis without myelopathy or radiculopathy, thoracic region Encounter for long-term opiate analgesic use Surgical History Status post fusion of wrist right 1992 S/P cholecystectomy S/P knee replacement LEFT 2014 Right 2018 Family History Mother Cancer LUNG Other Diabetes Social History Smoking and tobacco/nicotine status: never used tobacco/nicotine Second hand smoke exposure: No Alcohol intake: never Substance/Drug Use: never Physical Exam Const: COMMON NORMALS: no acute distress, patient oriented x3, no limitations, alert and well nourished GENERAL APPEARANCE: cooperative HENMT: COMMON NORMALS: normocephalic and atraumatic HEAD & SCALP: normal to inspection, normocephalic and atraumatic Neck/C-Spine: COMMON NORMALS: full ROM, no lymphadenopathy, supple, no meningeal signs and no JVD Chest: COMMONS NORMALS: normal inspection of the chest Resp: COMMON NORMALS: normal respiratory effort and clear to auscultation bilaterally AUSCULTATION: clear to auscultation bilaterally Cardio: COMMON NORMALS: no JVD and regular rate RATE: regular rate RHYTHM: abnormal rhythm irregularly irregular GI: COMMON NORMALS: Normal to inspection, nondistended, normoactive bowel sounds present, Soft to palpation, non-tender, No hepatosplenomegaly present and no masses PALPATION: Yes Soft to palpation and Yes No hepatosplenomegaly present : COMMON NORMALS: Yes no CVA tenderness BLADDER/KIDNEY EXAM: Yes no CVA tenderness Back/Pelvis: COMMON NORMALS: no CVA tenderness and thoracic and lumbar spine normal to inspection Extremity: COMMON NORMALS: normal to inspection, capillary refill normal, no clubbing, cyanosis or edema, no calf tenderness and no pedal edema GENERAL: Yes normal exam except as noted Neuro: COMMON NORMALS: patient oriented x3, moves all extremities, no focal motor deficits, no sensory deficits noted and gait normal SENSORIUM/ORIENTATION: Yes alert MENINGEAL SIGNS: Yes no meningeal signs Skin: COMMON NORMALS: no rashes or lesions noted GENERAL SKIN EXAM: no rashes or lesions noted Course Vital Signs: Vital signs: Vital Signs Temperature 98.6 F 08/02/25 14:50 Pulse Rate 95 08/02/25 14:50 Respiratory Rate 17 08/02/25 14:50 Blood Pressure 145/100 08/02/25 14:50 Pulse Oximetry 96 08/02/25 14:50 Oxygen Delivery Me thod Room Air 08/02/25 14:50 MDM - Arrhythmia/Palpitations Medical Decision Making Patient is a very nice 59-year-old male with a history of paroxysmal atrial fibrillation here for sustained atrial fibrillation over the past 14 days. He is rate controlled. Blood pressures are normal. He is not having any concerning symptoms at this time. Blood work overall is nonactionable. His [id number] score is 1. We did discussed shared decision making about starting him on anticoagulation today but we were also able to get him follow up with cardiology for 08/13 and patient would like to wait until this appointment to discuss with cardiology which I think is reasonable. Patient will be allowed discharge. Return to ED precautions discussed. Differential Diagnosis Likely palpitations, artial fibrillation, artial flutter and supraventricular tachycardia Medical Records I reviewed the patient's medical records. Lab Data I reviewed the patient's lab results. 08/02/25 15:32 08/02/25 15:32 Laboratory Results WBC 7.53 10^3/uL (3.29-11.43) 08/02/25 15:32 RBC 4.87 10^6/uL (3.85-5.65) 08/02/25 15:32 Hgb 13.90 g/dL (11.27-16.99) 08/02/25 15:32 Hct 42.1 % (37-53) 08/02/25 15:32 MCV 86.4 fl (82-101) 08/02/25 15: MCH 28.5 pg (27-33) 08/02/25 15: MCHC 33.0 g/dL (30-55) 08/02/25 15:32 RDW 12.8 % (12.1-15.1) 08/02/25 15:32 Plt Count 227 10^3/cmm (157-399) 08/02/25 15:32 MPV 11.4 fL (7.4-10.4) H 08/02/25 15:32 Neut % (Auto) 54.4 % 08/02/25 15:32 Lymph % (Auto) 33.5 % 08/02/25 15:32 [place] % (Auto) 8.2 % 08/02/25 15:32 Eos % (Auto) 2.4 % 08/02/25 15:32 Baso % (Auto) 1.2 % 08/02/25 15:32 Neut # (Auto) 4.10 10^3/uL (1.8-7.7) 08/02/25 15:32 Lymph # (Auto) 2.5 10^3/uL (0.8-4.8) 08/02/25 15:32 [place] # (Auto) 0.6 10^3/uL (0.2-0.9) 08/02/25 15:32 Eos # (Auto) 0.2 10^3/uL (0.0-0.8) 08/02/25 15:32 Baso # (Auto) 0.1 10^3/uL (0.0-0.1) 08/02/25 15:32 Nucleated RBC % (auto) 0 % 08/02/25 15:32 Nucleated RBCs # 0.0 /100WBC 08/02/25 15:32 Sodium 139 mmol/L (136-145) 08/02/25 15:32 Potassium 3.9 mmol/L (3.5-5.1) 08/02/25 15:32 Chloride 106 mmol/L (98-107) 08/02/25 15:32 Carbon Dioxide 20 mmol/L (22-29) L 08/02/25 15:32 Anion Gap 16.9 (5-19) 08/02/25 15:32 BUN 14 mg/dL (6-20) 08/02/25 15:32 Creatinine 1.3 mg/dL (0.7-1.2) H 08/02/25 15:32 GFR Calculation 56.9 mL/min (90-130) L 08/02/25 15:32 Glucose 103 mg/dL (65-115) 08/02/25 15:32 Calculated Osmolality 289 mOsm/kg (285-295) 08/02/25 15:32 Calcium 8.9 mg/dL (8.5-10.5) 08/02/25 15:32 Magnesium 2.5 mg/dL (1.7-2.3) H 08/02/25 15:32 Total Bilirubin 0.4 mg/dL (0.15-1.2) 08/02/25 15:32 AST 20 U/L (0-40) 08/02/25 15:32 ALT 19 U/L (0-41) 08/02/25 15:32 Alkaline Phosphatase 68 U/L (40-130) 08/02/25 15:32 Troponin T Baseline 10 ng/L (0-15) 08/02/25 15:32 NT-Pro-B Natriuret Pep 292 pg/mL (0-125) H 08/02/25 15:32 Total Protein 6.6 g/dL (6.6-8.7) 08/02/25 15:32 Albumin 4.7 g/dL (3.5-5.2) 08/02/25 15:32 Globulin 1.9 g/dL (1.3-4.6) 08/02/25 15:32 TSH 1.30 uIU/mL (0.27-4.20) 08/02/25 15:32 No radiology studies performed this visit Discharge Plan Discharge Patient Disposition: Home Clinical Impression: Atrial fibrillation Qualifiers: Atrial fibrillation type: paroxysmal Qualified Code(s): I48.0 - Paroxysmal atrial fibrillation Condition: Stable Prescriptions: No Action aspirin [Jj Low Dose Aspirin] 81 mg tablet,delayed release (DR/EC) See Rx Instructions .ROUTE .COMPLEX Qty: 30 5RF Dose Instruction: Take 1 tablet by mouth once daily Rx Instructions: Take 1 tablet by mouth once daily duloxetine 30 mg capsule,delayed release(DR/EC) 30 mg PO ONCE oxycodone 10 mg tablet 10 mg PO Q6H tizanidine 4 mg tablet 4 mg PO BID diltiazem HCl 120 mg capsule,extended release 24hr See Rx Instructions .ROUTE .COMPLEX Qty: 90 3RF Dose Instruction: Take 1 capsule by mouth once daily in the morning Rx Instructions: Take 1 capsule by mouth once daily in the morning propafenone 150 mg tablet See Rx Instructions .ROUTE .COMPLEX Qty: 180 3RF Dose Instruction: TAKE 1 TABLET BY MOUTH TWICE DAILY Rx Instructions: TAKE 1 TABLET BY MOUTH TWICE DAILY trazodone 100 mg tablet See Rx Instructions .ROUTE .COMPLEX Qty: 90 0RF Dose Instruction: Take 1 tablet by mouth once daily Rx Instructions: Take 1 tablet by mouth once daily losartan 25 mg tablet See Rx Instructions .ROUTE .COMPLEX Qty: 30 2RF Dose Instruction: Take 1 tablet by mouth once daily Rx Instructions: Take 1 tablet by mouth once daily Discharge Orders: Discharge ED (Routine); Ordered 08/02/25 Ordered By: Sandhya Nguyen Referrals: MARGARITA Carreno, [employer]EDGER [Primary Care Provider, Family Practice] Patient Instructions: Atrial Fibrillation, A-fib (Atrial Fibrillation) (ED), Patient Portal & [facility] Instructions Activity Restrictions/Additional Instructions: As we discussed, your atrial fibrillation is rate controlled at this time. We will have you continue your normal medications. We did discuss possibility of placing you on anticoagulation but you would like to follow-up with cardiology to discuss this further. We did get you a follow up appointment with cardiology scheduled for WednesdayAugust 13 at 8:[address] Onofre. You may return to the emergency department for onset of rapid heart rate, dizziness, lightheadedness, passing out episodes, chest pain, shortness of breath, or any other concerns you may have. Print Language: Belgian Coding Level of Care Code ED [place] for Aliza Ambrosio
[2025-08-02 15:39] LABS: Hematocrit 42.1 % (37-53); Hemoglobin 13.90 g/dL (11.27-16.99); Mean Corpuscular HGB Conc 33.0 g/dL (30-55); Mean Corpuscular Hemoglobin 28.5 pg (27-33); Mean Corpuscular Volume 86.4 fl (82-101); Nucleated Red Blood Cells % 0 %; Platelet Count 227 10^3/cmm (157-399); Red Blood Count 4.87 10^6/uL (3.85-5.65); White Blood Count 7.53 10^3/uL (3.29-11.43)
--- NOTE | 2025-08-02 15:55 | DCPLANNER ---
scheduled heart care er f/u 08/13 @ 0800
[2025-08-02 15:59] LABS: Troponin(5th) Baseline 10 ng/L (0-15)
[2025-08-02 16:06] LABS: Alanine Aminotransferase 19 U/L (0-41); Albumin Level 4.7 g/dL (3.5-5.2); Alkaline Phosphatase 68 U/L (40-130); Anion Gap 16.9 (5-19); Aspartate Amino Transferase 20 U/L (0-40); Blood Urea Nitrogen 14 mg/dL (6-20); Calcium 8.9 mg/dL (8.5-10.5); Carbon Dioxide 20 mmol/L (22-29); Chloride 106 mmol/L (98-107); Creatinine Clr Calc Pharmacy 96.0580; Globulin 1.9 g/dL (1.3-4.6); Glucose 103 mg/dL (65-115); Magnesium 2.5 mg/dL (1.7-2.3); NT Pro B Type Natriuretic Pept 292 pg/mL (0-125); Osmolality Calculated 289 mOsm/kg (285-295); Potassium 3.9 mmol/L (3.5-5.1); Sodium 139 mmol/L (136-145); Thyroid Stimulating Hormone 1.30 uIU/mL (0.27-4.20); Total Protein 6.6 g/dL (6.6-8.7)
[2025-08-02 16:22] VITALS: BP 139/83; PULSE 76; RESP 19; O2SAT 93
== END 2025-08-02 16:37 | disposition home or self-care (01) ==
PROVIDERS: Emergency Medicine; Emergency Provider Physician Assistant; PCP Nurse Practitioner Family
DX: I48.0 Paroxysmal atrial fibrillation (principal); Z79.82 Long term (current) use of aspirin; I10 Essential (primary) hypertension; E78.2 Mixed hyperlipidemia
CPT/HCPCS: 36415; 80053; 83735; 83880; 84443; 84484; 85025; 93005; 99284